=== PATIENT | male | born 1965 | race Caucasian/White ===

== ENCOUNTER 2023-08-07 21:42 | Inpatient (IN) | payer MEDICAID, MEDICARE ==
[~2023-08-07] VITALS: Ht 172.7 cm; Wt 63.3 kg
[2023-08-07] MEDS: BUPRENORPHINE/NALOXONE 8-2MG SUBLINGUAL TABLET(SUBOXONE) SL STA (22:10)
[2023-08-07 22:38] LABS: VENOUS BASE EXCESS 2.7 (-2.0-2.0); VENOUS HCO3 25.6 MMOL/L (23.0-27.0); VENOUS PARTIAL PRESSURE CO2 34.3 mmHg (38.0-50.0); VENOUS PARTIAL PRESSURE O2 51.8 mmHg (30.0-50.0); VENOUS STANDARD HCO3 26.6 MMOL/L; VENOUS TOTAL CO2 26.6 MMOL/L (24.0-28.0)
[2023-08-07 22:46] LABS: BASO % 0.4 % (0.0-1.0); EOS % 0.1 % (0.0-3.0); HEMATOCRIT 42.5 % (42.0-52.0); HEMOGLOBIN 15.1 g/dl (13.5-17.5); LYMPH # 1.8 10^3/uL (1.5-5.0); LYMPH % 23.4 % (24.0-44.0); MEAN CORPUSCULAR HEMOGLOBIN 31.7 pg (27.0-33.0); MEAN CORPUSCULAR HGB CONC 35.5 g/dl (32.0-36.5); MEAN CORPUSCULAR VOLUME 89.1 fl (80.0-96.0); MONO # 0.5 10^3/uL (0.0-0.8); MONO % 6.7 % (2.0-8.0); NEUTROPHILS # 5.2 10^3/uL (1.5-8.5); PLATELET COUNT, AUTOMATED 172 10^3/uL (150-450); RED BLOOD COUNT 4.77 10^6/uL (4.30-6.10); WHITE BLOOD COUNT 7.6 10^3/uL (4.0-10.0)
[2023-08-07 23:13] LABS: CK-MB VALUE MASS < 1.0 NG/ML (<3.6)
[2023-08-07 23:14] LABS: LIPASE 236 U/L (12-53)
[2023-08-07 23:15] LABS: ETHYL ALCOHOL (ETHANOL) 0.006 % (0.000-0.010)
[2023-08-07 23:16] LABS: CPK CREATINE PHOSPHOKINASE 27 U/L (46-171)
[2023-08-07 23:22] LABS: HEMOGLOBIN A1c 11.8 % (4.0-6.0)
[2023-08-07 23:45] LABS: ACETONE/KETONE 1.23 MMOL/L (0.02-0.27)
[2023-08-07 23:54] LABS: ALBUMIN 3.1 G/DL (3.2-5.2); ALKALINE PHOSPHATASE 172 U/L (46-116); ALT/SGPT 109 U/L (7.0-40); AST/SGOT 177 U/L (<34); BILIRUBIN,TOTAL 3.5 MG/DL (0.3-1.2); BLOOD UREA NITROGEN 6 MG/DL (9-23); CALCIUM LEVEL 8.6 MG/DL (8.5-10.1); CARBON DIOXIDE LEVEL 24 MMOL/L (20-31); CHLORIDE LEVEL 94 MMOL/L (98-107); CREATININE FOR GFR 0.39 MG/DL (0.70-1.30); GLOMERULAR FILTRATION RATE > 60.0 (>56); GLUCOSE, FASTING 438 MG/DL (60-100); MAGNESIUM LEVEL 1.2 MG/DL (1.8-2.4); POTASSIUM SERUM 4.1 MMOL/L (3.5-5.1); SODIUM LEVEL 132 MMOL/L (136-145); TOTAL PROTEIN 6.9 G/DL (5.7-8.2)
[2023-08-08] VITALS (7 sets, daily range): BP systolic 140–172; BP diastolic 85–106; TEMP 97–97.7; O2SAT 94–97
[2023-08-08] MEDS: MAG SULF 1GM/100ML (MAG RUN) 1 GM in IV 1 EA IV ONE (00:43)
[2023-08-08] MEDS: PIPERACILLIN/TAZOBACTAM SOD 3.375 GM in D5W MINI-BAG PLUS 50 ML IV ONE (00:52)
[2023-08-08] MEDS: NS 1,000 ML IV ONE (00:52)
[2023-08-08 01:25] LABS: AMPHETAMINES LEVEL URINE NEGATIVE (NEGATIVE); BARBITURATES URINE NEGATIVE (NEGATIVE); BENZODIAZEPINES URINE NEGATIVE (NEGATIVE); COCAINE METABOLITE URINE NEGATIVE (NEGATIVE); METHADONE URINE NEGATIVE (NEGATIVE); OPIATES URINE NEGATIVE (NEGATIVE); PHENCYCLIDINE URINE NEGATIVE (NEGATIVE)
[2023-08-08 01:26] LABS: CANNABINOIDS URINE NEGATIVE (NEGATIVE)
[2023-08-08 01:29] LABS: CK-MB VALUE MASS < 1.0 NG/ML (<3.6)
[2023-08-08 01:34] LABS: CPK CREATINE PHOSPHOKINASE 29 U/L (46-171); MB/CK RELATIVE INDEX 3.44 (< OR =4)
[2023-08-08 02:35] LABS: RSV AMPLIFICATION NEGATIVE (NEGATIVE)
[2023-08-08] MEDS: MAG SULF 1GM/100ML (MAG RUN) 1 GM in IV 1 EA IV SCH (02:55)
[2023-08-08] MEDS ORDERED: LORazepam 2 MG TAB PO PRN (03:00)
[2023-08-08] MEDS: LR 1,000 ML IV ONE (03:00)
[2023-08-08] MEDS ORDERED: METOCLOPRAMIDE INJ 10MG/2ML VIAL IV PRN (03:00)
[2023-08-08] MEDS ORDERED: DEXTROSE 50% 50ML SYRINGE IV PRN (03:20)
[2023-08-08] MEDS ORDERED: GLUCAGON INJ 1MG VIAL SC PRN (03:20)
[2023-08-08] MEDS ORDERED: GLUCOSE 4GM CHEW TABLET PO PRN (03:20)
[2023-08-08] MEDS ORDERED: KETOROLAC 30 MG/ML 1ML VIAL IV PRN ×2 (03:40)
[2023-08-08] MEDS ORDERED: MORPHINE 2 MG/ML 1ML VIAL IV PRN (03:40)
[2023-08-08] MEDS: LR 1,000 ML IV SCH (04:00)
[2023-08-08] MEDS: INSULIN LISPRO (NovoLOG) PER UNIT SC ONE (04:36)
[2023-08-08 04:46] LABS: BASO % 0.3 % (0.0-1.0); HEMATOCRIT 38.9 % (42.0-52.0); HEMOGLOBIN 13.5 g/dl (13.5-17.5); LYMPH # 1.4 10^3/uL (1.5-5.0); MEAN CORPUSCULAR HGB CONC 34.7 g/dl (32.0-36.5); MEAN CORPUSCULAR VOLUME 89.2 fl (80.0-96.0); MONO # 0.7 10^3/uL (0.0-0.8); MONO % 7.4 % (2.0-8.0); NEUTROPHILS # 6.8 10^3/uL (1.5-8.5); NEUTROPHILS % 75.6 % (36.0-66.0); PLATELET COUNT, AUTOMATED 126 10^3/uL (150-450); RED BLOOD COUNT 4.36 10^6/uL (4.30-6.10); WHITE BLOOD COUNT 8.9 10^3/uL (4.0-10.0)
[2023-08-08 04:57] LABS: INR 1.16; PROTHROMBIN TIME 14.4 SECONDS (12.5-14.5)
[2023-08-08 05:02] LABS: C REACTIVE PROTEIN QUANTITATIV < 0.40 MG/DL (<1.0)
[2023-08-08 05:03] LABS: AMYLASE 80 U/L (30-118)
[2023-08-08] MEDS: INSULIN LISPRO (NovoLOG) PER UNIT SC SCH (06:07)
[2023-08-08 08:32] LABS: BLOOD UREA NITROGEN 7 MG/DL (9-23); CALCIUM LEVEL 7.2 MG/DL (8.5-10.1); CARBON DIOXIDE LEVEL 26 MMOL/L (20-31); CHLORIDE LEVEL 97 MMOL/L (98-107); GLOMERULAR FILTRATION RATE > 60.0 (>56); GLUCOSE, FASTING 432 MG/DL (60-100); MAGNESIUM LEVEL 1.9 MG/DL (1.8-2.4); POTASSIUM SERUM 3.6 MMOL/L (3.5-5.1); SODIUM LEVEL 132 MMOL/L (136-145)
[2023-08-08 11:32] LABS: TRIGLYCERIDES LEVEL 104 MG/DL (<150)
[2023-08-08] MEDS: LORazepam 2 MG/ML 1ML VIAL IV PRN (11:42)
[2023-08-08] MEDS ORDERED: GABA-282 PO (11:50)
[2023-08-08] MEDS ORDERED: VENTAER INH (11:50)
[2023-08-08] MEDS ORDERED: AMLO1TAB24 PO (11:50)
[2023-08-08] MEDS ORDERED: CLON0.3T PO (11:50)
[2023-08-08] MEDS ORDERED: SUBO4MIS SL (11:50)
[2023-08-08] MEDS ORDERED: DIVA500T9 PO (11:50)
[2023-08-08] MEDS ORDERED: MIRT1TAB15 PO (11:50)
[2023-08-08] MEDS ORDERED: BUPR1FIL SL (11:50)
[2023-08-08] MEDS ORDERED: OMEP40CA4 PO (11:50)
[2023-08-08] MEDS ORDERED: ZOLO100T PO (11:50)
[2023-08-08] MEDS ORDERED: METF500T13 PO (11:50)
[2023-08-08] MEDS ORDERED: MIRT-10 PO (12:03)
[2023-08-08] MEDS ORDERED: HOME MED LIST COMPLETE! XX SCH (12:05)
[2023-08-08] MEDS: HumuLIN R (REGULAR) INSULIN (NovoLIN R) **100U/ML** PER UNIT IV STA (12:25)
[2023-08-08] MEDS: THIAMINE 200MG 2ML VIAL IV SCH (12:32)
[2023-08-08] MEDS: BUPRENORPHINE/NALOXONE 8-2MG SUBLINGUAL TABLET(SUBOXONE) SL STA (15:27)
[2023-08-08] MEDS: GABAPENTIN 300 MG CAP PO SCH (16:04)
[2023-08-08 18:45] LABS: HEMOGLOBIN A1c 11.4 % (4.0-6.0)
[2023-08-08 19:19] LABS: HEPATITIS B CORE ANTIBODY IGM NEGATIVE (NEGATIVE)
[2023-08-08 19:23] LABS: HEPATITIS C VIRUS ABY INDEX > 11.00 INDEX (<0.8)
[2023-08-08] MEDS: HEPARIN SOD (PORCINE) 5000UNITS/ML 1ML VIAL/SYRINGE SC SCH (22:11)
[2023-08-08] MEDS: SERTRALINE 100 MG TAB PO SCH (22:12)
[2023-08-08] MEDS: OXAZEPAM 15MG CAP PO SCH (22:12)
[2023-08-08] MEDS: MIRTAZAPINE 15 MG TAB PO SCH (22:12)
[2023-08-09 00:13] VITALS: BP 148/89; O2SAT 93
[2023-08-09 04:50] VITALS: BP 150/94; TEMP 97.2; O2SAT 91
[2023-08-09 06:12] LABS: HEMATOCRIT 38.5 % (42.0-52.0); HEMOGLOBIN 12.9 g/dl (13.5-17.5); MEAN CORPUSCULAR HEMOGLOBIN 31.5 pg (27.0-33.0); MEAN CORPUSCULAR HGB CONC 33.5 g/dl (32.0-36.5); MEAN CORPUSCULAR VOLUME 93.9 fl (80.0-96.0); PLATELET COUNT, AUTOMATED 109 10^3/uL (150-450); WHITE BLOOD COUNT 5.3 10^3/uL (4.0-10.0)
[2023-08-09 06:47] LABS: ALBUMIN 2.6 G/DL (3.2-5.2); ALKALINE PHOSPHATASE 132 U/L (46-116); ALT/SGPT 86 U/L (7.0-40); AST/SGOT 150 U/L (<34); BILIRUBIN,TOTAL 2.5 MG/DL (0.3-1.2); BLOOD UREA NITROGEN 7 MG/DL (9-23); CALCIUM LEVEL 8.3 MG/DL (8.5-10.1); CARBON DIOXIDE LEVEL 34 MMOL/L (20-31); CHLORIDE LEVEL 103 MMOL/L (98-107); CREATININE FOR GFR 0.46 MG/DL (0.70-1.30); GLOMERULAR FILTRATION RATE > 60.0 (>56); GLUCOSE, FASTING 93 MG/DL (60-100); MAGNESIUM LEVEL 1.6 MG/DL (1.8-2.4); POTASSIUM SERUM 3.9 MMOL/L (3.5-5.1); SODIUM LEVEL 143 MMOL/L (136-145); TOTAL PROTEIN 5.6 G/DL (5.7-8.2); TRIGLYCERIDES LEVEL 92 MG/DL (<150)
[2023-08-09] MEDS: OMEPRAZOLE 20MG CAP PO SCH (09:47)
[2023-08-09] MEDS: cloNIDine 0.1MG TABLET PO SCH (09:49)
[2023-08-09] MEDS: amLODIPine 5 MG TAB PO SCH (09:50)
[2023-08-09] MEDS: MAGNESIUM OXIDE 400MG TAB (MAG-OX) PO ONE (09:51)
[2023-08-09] MEDS: BUPRENORPHINE/NALOXONE 8-2MG SUBLINGUAL TABLET(SUBOXONE) SL SCH (09:51)
[2023-08-09] MEDS: DIVALPROEX 500MG *ER* TAB PO SCH (09:51)
[2023-08-09] MEDS: MAG SULF 1GM/100ML (MAG RUN) 1 GM in IV 1 EA IV SCH (09:52)
[2023-08-09 10:34] VITALS: O2SAT 96
[2023-08-09 14:00] VITALS: BP 98/68; TEMP 97.9; O2SAT 94
[2023-08-09 14:34] VITALS: BP 118/72
[2023-08-09] MEDS: NICOTINE 14 MG/24 HR TRANSDERMAL TD PRN (14:40)
[2023-08-09 19:40] VITALS: BP 118/72; TEMP 98.1; O2SAT 90
[2023-08-10] MEDS ORDERED: RAMELTEON 8 MG TAB (ROZEREM) PO PRN (00:20)
[2023-08-10] MEDS: MAGNESIUM OXIDE 400MG TAB (MAG-OX) PO ONE (02:55)
[2023-08-10 06:42] VITALS: BP 119/76; TEMP 97.7; O2SAT 92
[2023-08-10] MEDS: INSULIN LISPRO (NovoLOG) PER UNIT SC SCH ×2 (07:30→21:00)
[2023-08-10 08:00] VITALS: BP 114/73
[2023-08-10 09:17] LABS: BLOOD UREA NITROGEN 8 MG/DL (9-23); CALCIUM LEVEL 7.5 MG/DL (8.5-10.1); CARBON DIOXIDE LEVEL 29 MMOL/L (20-31); CHLORIDE LEVEL 99 MMOL/L (98-107); CREATININE FOR GFR 0.42 MG/DL (0.70-1.30); GLOMERULAR FILTRATION RATE > 60.0 (>56); GLUCOSE, FASTING 248 MG/DL (60-100); MAGNESIUM LEVEL 1.6 MG/DL (1.8-2.4); POTASSIUM SERUM 3.3 MMOL/L (3.5-5.1); SODIUM LEVEL 132 MMOL/L (136-145)
[2023-08-10] MEDS: MAGNESIUM OXIDE 400MG TAB (MAG-OX) PO SCH (09:57)
[2023-08-10] MEDS: MAG SULF 1GM/100ML (MAG RUN) 1 GM in IV 1 EA IV SCH (10:02)
[2023-08-10] MEDS: NYSTATIN OINTMENT 15 GM TOP SCH (13:14)
[2023-08-10 14:00] VITALS: BP 112/72; TEMP 97.3; O2SAT 91
[2023-08-10] MEDS: KCL 10MEQ/100ML SWI (KRUN) 10 MEQ in IV 1 EA IV SCH (14:10)
[2023-08-10 17:46] LABS: BLOOD UREA NITROGEN 7 MG/DL (9-23); CALCIUM LEVEL 8.1 MG/DL (8.5-10.1); CARBON DIOXIDE LEVEL 28 MMOL/L (20-31); CHLORIDE LEVEL 101 MMOL/L (98-107); CREATININE FOR GFR 0.47 MG/DL (0.70-1.30); GLOMERULAR FILTRATION RATE > 60.0 (>56); GLUCOSE, FASTING 248 MG/DL (60-100); MAGNESIUM LEVEL 1.9 MG/DL (1.8-2.4); POTASSIUM SERUM 3.8 MMOL/L (3.5-5.1); SODIUM LEVEL 136 MMOL/L (136-145)
[2023-08-10] MEDS: KCL 10MEQ/100ML SWI (KRUN) 10 MEQ in IV 1 EA IV ONE (18:06)
[2023-08-10 21:15] VITALS: BP 122/65; TEMP 97.7; O2SAT 92
[2023-08-11 05:43] VITALS: BP 110/59; TEMP 97.5; O2SAT 92
[2023-08-11 07:21] LABS: BLOOD UREA NITROGEN 9 MG/DL (9-23); CALCIUM LEVEL 7.4 MG/DL (8.5-10.1); CARBON DIOXIDE LEVEL 30 MMOL/L (20-31); CHLORIDE LEVEL 104 MMOL/L (98-107); CREATININE FOR GFR 0.41 MG/DL (0.70-1.30); GLOMERULAR FILTRATION RATE > 60.0 (>56); GLUCOSE, FASTING 229 MG/DL (60-100); MAGNESIUM LEVEL 1.6 MG/DL (1.8-2.4); POTASSIUM SERUM 3.4 MMOL/L (3.5-5.1); SODIUM LEVEL 139 MMOL/L (136-145)
[2023-08-11] MEDS: MAG SULF 1GM/100ML (MAG RUN) 1 GM in IV 1 EA IV ONE (09:57)
[2023-08-11] MEDS: MAGNESIUM OXIDE 400MG TAB (MAG-OX) PO SCH (09:58)
[2023-08-11] MEDS: POTASSIUM CHLORIDE 10MEQ SR TABLET PO SCH (09:58)
[2023-08-11 14:00] VITALS: BP 105/72; TEMP 97.5; O2SAT 91
[2023-08-11 20:57] VITALS: BP 111/74; TEMP 97.7; O2SAT 90
[2023-08-12] VITALS (8 sets, daily range): BP systolic 111–135; BP diastolic 72–85; TEMP 97.7–98.1; O2SAT 83–98
[2023-08-12 06:56] LABS: BLOOD UREA NITROGEN 8 MG/DL (9-23); CALCIUM LEVEL 7.5 MG/DL (8.5-10.1); CARBON DIOXIDE LEVEL 30 MMOL/L (20-31); CHLORIDE LEVEL 105 MMOL/L (98-107); CREATININE FOR GFR 0.35 MG/DL (0.70-1.30); GLOMERULAR FILTRATION RATE > 60.0 (>56); GLUCOSE, FASTING 225 MG/DL (60-100); MAGNESIUM LEVEL 1.5 MG/DL (1.8-2.4); POTASSIUM SERUM 4.9 MMOL/L (3.5-5.1); SODIUM LEVEL 141 MMOL/L (136-145)
[2023-08-12] MEDS: MAG SULF 1GM/100ML (MAG RUN) 1 GM in IV 1 EA IV SCH (08:33)
[2023-08-13] VITALS (8 sets, daily range): BP systolic 118–155; BP diastolic 78–92; TEMP 97.3–98.8; O2SAT 87–94
[2023-08-13 07:16] LABS: BLOOD UREA NITROGEN 8 MG/DL (9-23); CALCIUM LEVEL 8.2 MG/DL (8.5-10.1); CARBON DIOXIDE LEVEL 29 MMOL/L (20-31); CHLORIDE LEVEL 99 MMOL/L (98-107); CREATININE FOR GFR 0.38 MG/DL (0.70-1.30); GLOMERULAR FILTRATION RATE > 60.0 (>56); GLUCOSE, FASTING 169 MG/DL (60-100); MAGNESIUM LEVEL 1.7 MG/DL (1.8-2.4); POTASSIUM SERUM 5.7 MMOL/L (3.5-5.1); SODIUM LEVEL 132 MMOL/L (136-145)
[2023-08-13] MEDS: FUROSEMIDE 40MG/4ML VIAL IV ONE ×2 (14:24→18:39)
[2023-08-13 15:50] LABS: APPEARANCE, URINE CLEAR (CLEAR); BACTERIA, URINE AUTO NEGATIVE (NEGATIVE); BILIRUBIN, URINE AUTO NEGATIVE (NEGATIVE); BLOOD, URINE BLOOD NEGATIVE (NEGATIVE); COLOR, URINE AMBER (YELLOW); GLUCOSE, URINE (UA) AUTO NEGATIVE (NEGATIVE); KETONE, URINE AUTO NEGATIVE (NEGATIVE); LEUKOCYTE ESTERASE, URINE AUTO NEGATIVE (NEGATIVE); NITRITE, URINE AUTO NEGATIVE (NEGATIVE); PROTEIN, URINE AUTO NEGATIVE (NEGATIVE); RBC, URINE AUTO 0 /HPF (0-3); SPECIFIC GRAVITY URINE AUTO 1.018 (1.002-1.035); SQUAMOUS EPITHELIAL CELL UR AU 0 /HPF (0-6); WBC, URINE AUTO 0 /HPF (0-3)
[2023-08-13] MEDS: CALCIUM GLUCONATE 1,000 MG in D5W MINI-BAG PLUS 100 ML IV ONE (18:40)
[2023-08-13 19:24] LABS: PROCALCITONIN 0.65 ng/ml
[2023-08-13] MEDS: ALBUTEROL 90 MCG/ACT 8GM HFA INHALER INH PRN (19:49)
[2023-08-13] MEDS: cefTRIAXone SOD 1 GM in D5W MINI-BAG PLUS 50 ML IV SCH (20:27)
[2023-08-14] VITALS (7 sets, daily range): BP systolic 101–147; BP diastolic 63–89; TEMP 97.5–98.1; O2SAT 83–95
[2023-08-14 06:58] LABS: ALBUMIN 2.3 G/DL (3.2-5.2); ALKALINE PHOSPHATASE 136 U/L (46-116); ALT/SGPT 47 U/L (7.0-40); AST/SGOT 66 U/L (<34); BILIRUBIN,DIRECT 0.8 MG/DL (<0.4); BLOOD UREA NITROGEN 15 MG/DL (9-23); CALCIUM LEVEL 7.8 MG/DL (8.5-10.1); CARBON DIOXIDE LEVEL 31 MMOL/L (20-31); CHLORIDE LEVEL 98 MMOL/L (98-107); CREATININE FOR GFR 0.49 MG/DL (0.70-1.30); GLOMERULAR FILTRATION RATE > 60.0 (>56); GLUCOSE, FASTING 262 MG/DL (60-100); MAGNESIUM LEVEL 1.7 MG/DL (1.8-2.4); PHOSPHORUS LEVEL 3.4 MG/DL (2.5-4.9); POTASSIUM SERUM 4.5 MMOL/L (3.5-5.1); SODIUM LEVEL 134 MMOL/L (136-145); THYROID STIMULATING HORMONE 2.484 uIU/ML (0.55-4.78); TOTAL PROTEIN 5.7 G/DL (5.7-8.2)
[2023-08-14] MEDS: MAG SULF 1GM/100ML (MAG RUN) 1 GM in IV 1 EA IV SCH (08:18)
[2023-08-14] MEDS: INSULIN LISPRO (NovoLOG) PER UNIT SC ONE (13:40)
[2023-08-14] MEDS: guaiFENesin ER TABLET 600 MG TAB PO SCH (13:43)
[2023-08-14] MEDS: IPRATROPIUM 0.5MG/ALBUTEROL 2.5MG INH SOL UD 3ML (DUONEB) NEB SCH (14:09)
[2023-08-14] MEDS: LEVEMIR (INSULIN DETEMIR) 1 UNITS/0.01ML SC SCH (20:30)
[2023-08-15 06:00] VITALS: BP 118/70; TEMP 97.2; O2SAT 93
[2023-08-15 07:06] LABS: BLOOD UREA NITROGEN 10 MG/DL (9-23); CALCIUM LEVEL 7.4 MG/DL (8.5-10.1); CARBON DIOXIDE LEVEL 34 MMOL/L (20-31); CHLORIDE LEVEL 96 MMOL/L (98-107); CREATININE FOR GFR 0.42 MG/DL (0.70-1.30); GLOMERULAR FILTRATION RATE > 60.0 (>56); GLUCOSE, FASTING 115 MG/DL (60-100); MAGNESIUM LEVEL 1.9 MG/DL (1.8-2.4); POTASSIUM SERUM 4.7 MMOL/L (3.5-5.1); SODIUM LEVEL 135 MMOL/L (136-145)
[2023-08-15 12:28] VITALS: O2SAT 91
[2023-08-15 14:00] VITALS: BP 109/68; TEMP 98.1; O2SAT 91
[2023-08-15] MEDS: BETAMETHASONE VAL 0.1% OINT 15 GM TOP SCH (14:44)
[2023-08-15] MEDS: MULTIVITAMINS/MINERALS THERAP 1 TAB PO SCH (14:44)
[2023-08-15] MEDS: CLOTRIMAZOLE 1% TOPICAL CREAM 30GM TOP SCH (17:12)
[2023-08-15 20:40] VITALS: BP 107/95; TEMP 97.5; O2SAT 89
[2023-08-16 07:21] LABS: BLOOD UREA NITROGEN 7 MG/DL (9-23); CALCIUM LEVEL 7.6 MG/DL (8.5-10.1); CARBON DIOXIDE LEVEL 33 MMOL/L (20-31); CHLORIDE LEVEL 100 MMOL/L (98-107); CREATININE FOR GFR 0.37 MG/DL (0.70-1.30); GLOMERULAR FILTRATION RATE > 60.0 (>56); GLUCOSE, FASTING 224 MG/DL (60-100); MAGNESIUM LEVEL 1.6 MG/DL (1.8-2.4); POTASSIUM SERUM 4.3 MMOL/L (3.5-5.1); SODIUM LEVEL 137 MMOL/L (136-145)
[2023-08-16 07:43] VITALS: O2SAT 95
[2023-08-16 08:14] VITALS: BP 113/74
[2023-08-16] MEDS: THIAMINE 100 MG TAB PO SCH (08:16)
[2023-08-16] MEDS ORDERED: METF10004 PO (10:34)
[2023-08-16] MEDS ORDERED: BETA1OI TOP (10:34)
[2023-08-16] MEDS ORDERED: FARX1TAB3 PO (10:34)
[2023-08-16] MEDS ORDERED: MAGN400T2 PO (10:34)
[2023-08-16] MEDS ORDERED: CLOTR1CR TOP (10:34)
[2023-08-16] MEDS ORDERED: THIA100TA PO (10:34)
[2023-08-16] MEDS ORDERED: CEFD1CAP9 PO (10:44)
[2023-08-16] MEDS ORDERED: CLON0.3T PO (13:09)
[2023-08-16] MEDS ORDERED: VENTAER INH (13:09)
[2023-08-16] MEDS: ACETAMINOPHEN TAB 650MG DOSE (2X325MG) PO ONE (13:40)
== END 2023-08-16 13:46 | disposition home health service (06) | DRG 773 ==
LOC: M ED 21:42 → M ED INP 08-08 02:58 → M MSPAV 08-08 14:16
PROVIDERS: ADMIT Internal Medicine; ATTEND Internal Medicine
DX: F11.23 Opioid dependence with withdrawal (principal); J96.01 Acute respiratory failure with hypoxia; J69.0 Pneumonitis due to inhalation of food and vomit; E11.65 Type 2 diabetes mellitus with hyperglycemia; F10.10 Alcohol abuse, uncomplicated; E83.42 Hypomagnesemia; I10 Essential (primary) hypertension; B35.9 Dermatophytosis, unspecified; R32 Unspecified urinary incontinence; K85.20 Alcohol induced acute pancreatitis without necrosis or infection; M51.26 Other intervertebral disc displacement, lumbar region; F17.200 Nicotine dependence, unspecified, uncomplicated; R26.89 Other abnormalities of gait and mobility; M48.061 Spinal stenosis, lumbar region without neurogenic claudication; R74.01 Elevation of levels of liver transaminase levels; Z74.1 Need for assistance with personal care; L30.9 Dermatitis, unspecified; Z11.52 Encounter for screening for COVID-19

== ENCOUNTER 2023-08-24 21:17 | Observation (INO) | payer MEDICARE, MEDICAID ==
[~2023-08-24] VITALS: Ht 172.7 cm; Wt 69.8 kg
[~2023-08-24 21:17] MED LIST: AMLO1TAB24 PO; BETA1OI TOP; BUPR1FIL SL; CEFD1CAP9 PO; CLON0.3T PO; CLOTR1CR TOP; DIVA500T9 PO; FARX1TAB3 PO; GABA-282 PO; MAGN400T2 PO; METF10004 PO; METF500T13 PO; MIRT-10 PO; MIRT1TAB15 PO; OMEP40CA4 PO; SUBO4MIS SL; THIA100TA PO; VENTAER INH; ZOLO100T PO
[2023-08-24] MEDS: ONDANSETRON 4MG 2ML VIAL IV ONE (21:47)
[2023-08-24] MEDS: KETOROLAC 30 MG/ML 1ML VIAL IV ONE (21:47)
[2023-08-24] MEDS: NS 1,000 ML IV ONE (21:47)
[2023-08-24 22:16] LABS: LIPASE 140 U/L (12-53)
[2023-08-24 22:22] LABS: ALBUMIN 2.5 G/DL (3.2-5.2); ALKALINE PHOSPHATASE 131 U/L (46-116); ALT/SGPT 77 U/L (7.0-40); AST/SGOT 123 U/L (<34); BASO # 0.1 10^3/uL (0.0-0.2); BASO % 1.4 % (0.0-1.0); BILIRUBIN,TOTAL 0.7 MG/DL (0.3-1.2); BLOOD UREA NITROGEN < 5 MG/DL (9-23); CALCIUM LEVEL 7.7 MG/DL (8.5-10.1); CARBON DIOXIDE LEVEL 24 MMOL/L (20-31); CHLORIDE LEVEL 107 MMOL/L (98-107); CREATININE FOR GFR 0.39 MG/DL (0.70-1.30); EOS % 0.2 % (0.0-3.0); GLOMERULAR FILTRATION RATE > 60.0 (>56); GLUCOSE, FASTING 226 MG/DL (60-100); HEMATOCRIT 35.1 % (42.0-52.0); LYMPH # 1.2 10^3/uL (1.5-5.0); LYMPH % 17.5 % (24.0-44.0); MEAN CORPUSCULAR HGB CONC 34.2 g/dl (32.0-36.5); MEAN CORPUSCULAR VOLUME 93.6 fl (80.0-96.0); MONO # 0.5 10^3/uL (0.0-0.8); MONO % 8.2 % (2.0-8.0); NEUTROPHILS # 4.8 10^3/uL (1.5-8.5); NEUTROPHILS % 72.1 % (36.0-66.0); PLATELET COUNT, AUTOMATED 217 10^3/uL (150-450); POTASSIUM SERUM 3.8 MMOL/L (3.5-5.1); RED BLOOD COUNT 3.75 10^6/uL (4.30-6.10); SODIUM LEVEL 141 MMOL/L (136-145); TOTAL PROTEIN 5.7 G/DL (5.7-8.2); WHITE BLOOD COUNT 6.6 10^3/uL (4.0-10.0)
[2023-08-24] MEDS: MORPHINE 4 MG/ML 1ML VIAL IV ONE (23:16)
[2023-08-24] MEDS ORDERED: ISOVUE-370 76% 100ML VIAL As Ordered ONE (23:16)
[2023-08-25] VITALS (7 sets, daily range): BP systolic 117–155; BP diastolic 56–86; TEMP 96.7–98.9; O2SAT 91–99
[2023-08-25] MEDS ORDERED: METOCLOPRAMIDE INJ 10MG/2ML VIAL IV PRN (00:40)
[2023-08-25] MEDS ORDERED: GLUCOSE 4GM CHEW TABLET PO PRN (00:40)
[2023-08-25] MEDS ORDERED: KETOROLAC 30 MG/ML 1ML VIAL IV PRN (00:40)
[2023-08-25] MEDS ORDERED: GLUCAGON INJ 1MG VIAL SC PRN (00:40)
[2023-08-25] MEDS ORDERED: DEXTROSE 50% 50ML SYRINGE IV PRN (00:40)
[2023-08-25] MEDS ORDERED: SUBO8MIS SL (01:05)
[2023-08-25] MEDS ORDERED: CLON0.3T PO ×2 (01:05→10:58)
[2023-08-25] MEDS ORDERED: HOME MED LIST COMPLETE! XX SCH (01:05)
[2023-08-25] MEDS ORDERED: FARX1TAB3 PO (01:05)
[2023-08-25] MEDS ORDERED: METF-877 PO (01:05)
[2023-08-25 01:33] LABS: C REACTIVE PROTEIN QUANTITATIV < 0.40 MG/DL (<1.0); MAGNESIUM LEVEL 1.2 MG/DL (1.8-2.4)
[2023-08-25 01:34] LABS: AMYLASE 175 U/L (30-118)
[2023-08-25] MEDS: LR 1,000 ML IV SCH (02:01)
[2023-08-25] MEDS: INSULIN LISPRO (NovoLOG) PER UNIT SC SCH ×3 (02:01→20:20)
[2023-08-25] MEDS: MAG SULF 1GM/100ML (MAG RUN) 1 GM in IV 1 EA IV SCH (02:02)
[2023-08-25 03:13] LABS: APPEARANCE, URINE CLEAR (CLEAR); BACTERIA, URINE AUTO NEGATIVE (NEGATIVE); BILIRUBIN, URINE AUTO NEGATIVE (NEGATIVE); BLOOD, URINE BLOOD NEGATIVE (NEGATIVE); COLOR, URINE YELLOW (YELLOW); GLUCOSE, URINE (UA) AUTO NEGATIVE (NEGATIVE); KETONE, URINE AUTO NEGATIVE (NEGATIVE); LEUKOCYTE ESTERASE, URINE AUTO NEGATIVE (NEGATIVE); NITRITE, URINE AUTO NEGATIVE (NEGATIVE); PROTEIN, URINE AUTO NEGATIVE (NEGATIVE); RBC, URINE AUTO 0 /HPF (0-3); SPECIFIC GRAVITY URINE AUTO 1.048 (1.002-1.035); SQUAMOUS EPITHELIAL CELL UR AU 0 /HPF (0-6); WBC, URINE AUTO 0 /HPF (0-3)
[2023-08-25 03:13] LABS: BASO # 0.1 10^3/uL (0.0-0.2); BASO % 1.3 % (0.0-1.0); EOS % 0.6 % (0.0-3.0); HEMATOCRIT 32.4 % (42.0-52.0); HEMOGLOBIN 11.2 g/dl (13.5-17.5); LYMPH # 1.7 10^3/uL (1.5-5.0); LYMPH % 27.3 % (24.0-44.0); MEAN CORPUSCULAR HEMOGLOBIN 32.1 pg (27.0-33.0); MEAN CORPUSCULAR HGB CONC 34.6 g/dl (32.0-36.5); MEAN CORPUSCULAR VOLUME 92.8 fl (80.0-96.0); MONO # 0.4 10^3/uL (0.0-0.8); MONO % 6.3 % (2.0-8.0); NEUTROPHILS % 63.9 % (36.0-66.0); PLATELET COUNT, AUTOMATED 197 10^3/uL (150-450); RED BLOOD COUNT 3.49 10^6/uL (4.30-6.10); WHITE BLOOD COUNT 6.3 10^3/uL (4.0-10.0)
[2023-08-25 03:25] LABS: INR 1.25; PARTIAL THROMBOPLASTIN TIME 28.5 SECONDS (24.8-34.2); PROTHROMBIN TIME 15.4 SECONDS (12.5-14.5)
[2023-08-25 03:37] LABS: LIPASE 108 U/L (12-53)
[2023-08-25 03:39] LABS: AMYLASE 127 U/L (30-118)
[2023-08-25] MEDS: AZITHROMYCIN INJ 500 MG, VIAL MATE ADAPTER 1 EACH in NS 250 ML IV SCH (05:27)
[2023-08-25 06:16] LABS: ALBUMIN 2.3 G/DL (3.2-5.2); ALKALINE PHOSPHATASE 121 U/L (46-116); ALT/SGPT 71 U/L (7.0-40); AST/SGOT 110 U/L (<34); BILIRUBIN,TOTAL 0.8 MG/DL (0.3-1.2); BLOOD UREA NITROGEN < 5 MG/DL (9-23); CALCIUM LEVEL 7.1 MG/DL (8.5-10.1); CARBON DIOXIDE LEVEL 25 MMOL/L (20-31); CHLORIDE LEVEL 111 MMOL/L (98-107); GLOMERULAR FILTRATION RATE > 60.0 (>56); GLUCOSE, FASTING 87 MG/DL (60-100); MAGNESIUM LEVEL 1.4 MG/DL (1.8-2.4); SODIUM LEVEL 144 MMOL/L (136-145); TOTAL PROTEIN 5.2 G/DL (5.7-8.2); TRIGLYCERIDES LEVEL 162 MG/DL (<150)
[2023-08-25 07:15] LABS: HIV SCREEN CENTAUR SOURCE NEGATIVE (NEGATIVE)
[2023-08-25] MEDS: NICOTINE 21MG/24HR 1 EA TRANSDERMAL TD SCH (09:00)
[2023-08-25] MEDS: POTASSIUM CHLORIDE 10MEQ SR TABLET PO ONE ×2 (09:36→12:35)
[2023-08-25] MEDS: LACTOBACILLUS ACIDOPHILUS CAP (BACID) PO SCH (09:36)
[2023-08-25] MEDS: MAGNESIUM OXIDE 400MG TAB (MAG-OX) PO SCH (09:36)
[2023-08-25] MEDS: ENOXAPARIN 40MG/0.4ML SYRINGE (J1650 PER 10MG) SC SCH (09:37)
[2023-08-25] MEDS ORDERED: NICO21PAT TD (10:57)
[2023-08-25] MEDS ORDERED: AZIT-12 PO (10:57)
[2023-08-25] MEDS: BUPRENORPHINE/NALOXONE 8-2MG SUBLINGUAL TABLET(SUBOXONE) SL SCH ×2 (11:19→20:19)
[2023-08-25] MEDS ORDERED: POTA10808 PO (13:10)
[2023-08-25] MEDS ORDERED: MAGN500T2 PO (13:10)
[2023-08-25] MEDS: KETOROLAC 30 MG/ML 1ML VIAL IV PRN (13:11)
[2023-08-25 14:16] LABS: BLOOD UREA NITROGEN < 5 MG/DL (9-23); CALCIUM LEVEL 7.5 MG/DL (8.5-10.1); CARBON DIOXIDE LEVEL 26 MMOL/L (20-31); CHLORIDE LEVEL 105 MMOL/L (98-107); CREATININE FOR GFR 0.33 MG/DL (0.70-1.30); GLOMERULAR FILTRATION RATE > 60.0 (>56); GLUCOSE, FASTING 311 MG/DL (60-100); MAGNESIUM LEVEL 1.9 MG/DL (1.8-2.4); POTASSIUM SERUM 4.1 MMOL/L (3.5-5.1); SODIUM LEVEL 136 MMOL/L (136-145)
[2023-08-25] MEDS: MORPHINE 2 MG/ML 1ML VIAL IV PRN (15:59)
[2023-08-25] MEDS ORDERED: MORPHINE 2 MG/ML 1ML VIAL IV ONE (16:00)
[2023-08-25] MEDS: cloNIDine 0.1MG TABLET PO PRN (16:08)
[2023-08-25 18:30] LABS: HEMOGLOBIN A1c 8.5 % (4.0-6.0)
[2023-08-25] MEDS ORDERED: PILL CUTTER 1 EACH XX ONE (20:12)
[2023-08-25] MEDS: LEVEMIR (INSULIN DETEMIR) 1 UNITS/0.01ML SC SCH (20:18)
[2023-08-25] MEDS: SERTRALINE 100 MG TAB PO SCH (20:18)
[2023-08-25] MEDS ORDERED: PERCOCET 5MG/325MG TAB PO PRN (21:55)
[2023-08-25] MEDS: RAMELTEON 8 MG TAB (ROZEREM) PO PRN (21:58)
[2023-08-25] MEDS: KETOROLAC TROMETHAMINE 10 MG TAB PO PRN (22:14)
[2023-08-26 06:00] VITALS: BP 112/77; TEMP 97.7; O2SAT 97
[2023-08-26 06:25] LABS: BASO # 0.1 10^3/uL (0.0-0.2); BASO % 1.5 % (0.0-1.0); EOS # 0.1 10^3/uL (0.0-0.5); EOS % 2.5 % (0.0-3.0); HEMATOCRIT 33.6 % (42.0-52.0); HEMOGLOBIN 10.9 g/dl (13.5-17.5); LYMPH # 1.4 10^3/uL (1.5-5.0); LYMPH % 29.6 % (24.0-44.0); MEAN CORPUSCULAR HEMOGLOBIN 31.5 pg (27.0-33.0); MEAN CORPUSCULAR HGB CONC 32.4 g/dl (32.0-36.5); MEAN CORPUSCULAR VOLUME 97.1 fl (80.0-96.0); MONO # 0.3 10^3/uL (0.0-0.8); MONO % 6.9 % (2.0-8.0); NEUTROPHILS # 2.8 10^3/uL (1.5-8.5); NEUTROPHILS % 58.9 % (36.0-66.0); PLATELET COUNT, AUTOMATED 138 10^3/uL (150-450); RED BLOOD COUNT 3.46 10^6/uL (4.30-6.10); WHITE BLOOD COUNT 4.8 10^3/uL (4.0-10.0)
[2023-08-26 07:07] LABS: BLOOD UREA NITROGEN 8 MG/DL (9-23); CALCIUM LEVEL 7.4 MG/DL (8.5-10.1); CARBON DIOXIDE LEVEL 25 MMOL/L (20-31); CHLORIDE LEVEL 105 MMOL/L (98-107); CREATININE FOR GFR 0.33 MG/DL (0.70-1.30); GLOMERULAR FILTRATION RATE > 60.0 (>56); GLUCOSE, FASTING 290 MG/DL (60-100); POTASSIUM SERUM 4.3 MMOL/L (3.5-5.1); SODIUM LEVEL 135 MMOL/L (136-145)
[2023-08-26] MEDS: AZITHROMYCIN 250MG TABLET PO SCH (09:09)
[2023-08-26 09:12] VITALS: BP 122/76
[2023-08-26 10:00] VITALS: BP 123/76; TEMP 97.9; O2SAT 96
[2023-08-26] MEDS ORDERED: ZOLO100T PO (11:06)
[2023-08-26] MEDS ORDERED: METF-877 PO (11:06)
== END 2023-08-26 13:51 | disposition home or self-care (01) ==
LOC: M ED 21:17 → EDBD 21:17 → INTOOBSV 08-25 00:39 → M ED INP 08-25 00:39 → M PCU 08-25 02:10 → M MSPAV 08-25 20:30
PROVIDERS: ADMIT Family Medicine; ATTEND Internal Medicine
DX: A04.5 Campylobacter enteritis (principal); E87.6 Hypokalemia; E83.42 Hypomagnesemia; R74.8 Abnormal levels of other serum enzymes; R74.01 Elevation of levels of liver transaminase levels; E11.9 Type 2 diabetes mellitus without complications; F39 Unspecified mood [affective] disorder; F11.20 Opioid dependence, uncomplicated; R10.30 Lower abdominal pain, unspecified; K57.90 Diverticulosis of intestine, part unspecified, without perforation or abscess without bleeding; K76.0 Fatty (change of) liver, not elsewhere classified; R16.0 Hepatomegaly, not elsewhere classified; R05.9 Cough, unspecified; R06.02 Shortness of breath; R50.9 Fever, unspecified; I10 Essential (primary) hypertension; F41.9 Anxiety disorder, unspecified; Z87.19 Personal history of other diseases of the digestive system; B19.20 Unspecified viral hepatitis C without hepatic coma; F10.10 Alcohol abuse, uncomplicated; Z91.148 Patient's other noncompliance with medication regimen for other reason; F17.210 Nicotine dependence, cigarettes, uncomplicated; Z79.899 Other long term (current) drug therapy; Z79.84 Long term (current) use of oral hypoglycemic drugs; Z80.1 Family history of malignant neoplasm of trachea, bronchus and lung; Z81.1 Family history of alcohol abuse and dependence; Z83.79 Family history of other diseases of the digestive system
CPT/HCPCS: 36415; 71045; 74177; 80048; 80053; 81001; 82150; 83036; 83690; 83735; 84145; 84478; 85025; 85610; 85730; 86140; 86803; 87340; 87389; 87507; 87522; 87635; 96365; 96366; 96372; 96375; 96376; 99285; G0378; J0456; J1650; J1815; J1885; J2405; J3475; Q9967

== ENCOUNTER 2023-08-30 00:54 | Inpatient (IN) | payer MEDICARE, MEDICAID ==
[~2023-08-30] VITALS: Ht 175.3 cm; Wt 81.8 kg
[~2023-08-30 00:54] MED LIST changes: +AZIT-12 PO; +MAGN500T2 PO; +METF-877 PO; +NICO21PAT TD; +POTA10808 PO; +SUBO8MIS SL
[2023-08-30 03:12] LABS: BASO # 0.2 10^3/uL (0.0-0.2); BASO % 2.1 % (0.0-1.0); EOS % 0.2 % (0.0-3.0); HEMATOCRIT 48.3 % (42.0-52.0); HEMOGLOBIN 16.3 g/dl (13.5-17.5); LYMPH # 2.4 10^3/uL (1.5-5.0); LYMPH % 30.3 % (24.0-44.0); MEAN CORPUSCULAR HEMOGLOBIN 31.8 pg (27.0-33.0); MEAN CORPUSCULAR HGB CONC 33.7 g/dl (32.0-36.5); MEAN CORPUSCULAR VOLUME 94.3 fl (80.0-96.0); MONO # 0.5 10^3/uL (0.0-0.8); MONO % 6.5 % (2.0-8.0); NEUTROPHILS # 4.8 10^3/uL (1.5-8.5); PLATELET COUNT, AUTOMATED 191 10^3/uL (150-450); RED BLOOD COUNT 5.12 10^6/uL (4.30-6.10); WHITE BLOOD COUNT 8.1 10^3/uL (4.0-10.0)
[2023-08-30 03:24] LABS: INR 1.15; PROTHROMBIN TIME 14.3 SECONDS (12.5-14.5)
[2023-08-30 03:34] LABS: CK-MB VALUE MASS < 1.0 NG/ML (<3.6); LIPASE 113 U/L (12-53)
[2023-08-30 03:37] LABS: ALBUMIN 3.1 G/DL (3.2-5.2); ALKALINE PHOSPHATASE 187 U/L (46-116); ALT/SGPT 120 U/L (7.0-40); AST/SGOT 232 U/L (<34); BILIRUBIN,DIRECT 0.8 MG/DL (<0.4); BILIRUBIN,TOTAL 1.3 MG/DL (0.3-1.2); BLOOD UREA NITROGEN < 5 MG/DL (9-23); CALCIUM LEVEL 8.2 MG/DL (8.5-10.1); CARBON DIOXIDE LEVEL 27 MMOL/L (20-31); CHLORIDE LEVEL 108 MMOL/L (98-107); CPK CREATINE PHOSPHOKINASE 37 U/L (46-171); CREATININE FOR GFR 0.45 MG/DL (0.70-1.30); GLOMERULAR FILTRATION RATE > 60.0 (>56); GLUCOSE, FASTING 167 MG/DL (60-100); POTASSIUM SERUM 3.6 MMOL/L (3.5-5.1); SODIUM LEVEL 144 MMOL/L (136-145)
[2023-08-30 03:48] LABS: RSV AMPLIFICATION NEGATIVE (NEGATIVE)
[2023-08-30 04:34] LABS: CK-MB VALUE MASS < 1.0 NG/ML (<3.6)
[2023-08-30 04:36] LABS: CPK CREATINE PHOSPHOKINASE 46 U/L (46-171); MB/CK RELATIVE INDEX 2.17 (< OR =4)
[2023-08-30] MEDS ORDERED: ISOVUE-370 76% 100ML VIAL As Ordered ONE (08:44)
[2023-08-30] MEDS: NS 1,000 ML IV SCH (10:05)
[2023-08-30] MEDS ORDERED: ALBU8.5H INH (10:08)
[2023-08-30] MEDS ORDERED: BUPR1SUB5 SL (10:08)
[2023-08-30] MEDS ORDERED: METF10004 PO (10:08)
[2023-08-30] MEDS ORDERED: HOME MED LIST COMPLETE! XX SCH (10:10)
[2023-08-30] MEDS ORDERED: ALBUTEROL 90 MCG/ACT 8GM HFA INHALER INH PRN (12:00)
[2023-08-30 12:04] LABS: RSV AMPLIFICATION NEGATIVE (NEGATIVE)
[2023-08-30] MEDS: BUPRENORPHINE/NALOXONE 8-2MG SUBLINGUAL TABLET(SUBOXONE) SL SCH (12:21)
[2023-08-30] MEDS ORDERED: GLUCOSE 4GM CHEW TABLET PO PRN (12:25)
[2023-08-30] MEDS ORDERED: GLUCAGON INJ 1MG VIAL SC PRN (12:25)
[2023-08-30] MEDS ORDERED: DEXTROSE 50% 50ML SYRINGE IV PRN (12:25)
[2023-08-30 13:16] VITALS: BP 139/54; TEMP 97.7; O2SAT 99
[2023-08-30 13:16] LABS: INR 1.22; PARTIAL THROMBOPLASTIN TIME 28.6 SECONDS (24.8-34.2)
[2023-08-30] MEDS: ONDANSETRON 4MG ORAL DISINTEGRATING TAB SL PRN (13:42)
[2023-08-30] MEDS: NICOTINE 21MG/24HR 1 EA TRANSDERMAL TD SCH (13:42)
[2023-08-30] MEDS: SERTRALINE 100 MG TAB PO SCH (13:43)
[2023-08-30 14:00] VITALS: BP 133/66; TEMP 97.5; O2SAT 96
[2023-08-30] MEDS: cloNIDine 0.1MG TABLET PO SCH (15:12)
[2023-08-30] MEDS: PINK BISMUTH SUSP 524MG/30ML ORAL SYRINGE PO SCH (17:06)
[2023-08-30] MEDS: INSULIN LISPRO (NovoLOG) PER UNIT SC SCH ×2 (17:07→20:22)
[2023-08-30] MEDS: BUPRENORPHINE/NALOXONE 2-0.5MG SUBLINGUAL TABLET(SUBOXONE) SL SCH (20:15)
[2023-08-30] MEDS: HEPARIN SOD (PORCINE) 5000UNITS/ML 1ML VIAL/SYRINGE SC SCH (20:24)
[2023-08-30 22:00] VITALS: BP 133/69; TEMP 97.9; O2SAT 100
[2023-08-31] MEDS: NS 500 ML IV ONE (00:33)
[2023-08-31 03:34] LABS: HEMATOCRIT 35.2 % (42.0-52.0); HEMOGLOBIN 11.7 g/dl (13.5-17.5); MEAN CORPUSCULAR HEMOGLOBIN 31.8 pg (27.0-33.0); MEAN CORPUSCULAR HGB CONC 33.2 g/dl (32.0-36.5); MEAN CORPUSCULAR VOLUME 95.7 fl (80.0-96.0); RED BLOOD COUNT 3.68 10^6/uL (4.30-6.10); WHITE BLOOD COUNT 4.3 10^3/uL (4.0-10.0)
[2023-08-31 03:56] LABS: BLOOD UREA NITROGEN 9 MG/DL (9-23); CALCIUM LEVEL 7.6 MG/DL (8.5-10.1); CARBON DIOXIDE LEVEL 26 MMOL/L (20-31); CHLORIDE LEVEL 105 MMOL/L (98-107); CREATININE FOR GFR 0.37 MG/DL (0.70-1.30); GLOMERULAR FILTRATION RATE > 60.0 (>56); GLUCOSE, FASTING 175 MG/DL (60-100); MAGNESIUM LEVEL 1.2 MG/DL (1.8-2.4); POTASSIUM SERUM 4.1 MMOL/L (3.5-5.1); SODIUM LEVEL 136 MMOL/L (136-145)
[2023-08-31 04:02] LABS: PLATELET COUNT, AUTOMATED 94 10^3/uL (150-450)
[2023-08-31 06:00] VITALS: BP 132/70; TEMP 97.9; O2SAT 98
[2023-08-31 10:05] LABS: ALBUMIN 2.1 G/DL (3.2-5.2); ALKALINE PHOSPHATASE 122 U/L (46-116); ALT/SGPT 75 U/L (7.0-40); AST/SGOT 128 U/L (<34); BILIRUBIN,DIRECT 0.8 MG/DL (<0.4); BILIRUBIN,TOTAL 1.3 MG/DL (0.3-1.2)
[2023-08-31] MEDS: MAG SULF 1GM/100ML (MAG RUN) 1 GM in IV 1 EA IV SCH (10:25)
[2023-08-31 14:00] VITALS: BP 131/70; TEMP 97.5
[2023-08-31] MEDS: CLOBETASOL PROP 0.05% OINT 30 GM TOP SCH (17:39)
[2023-08-31 22:00] VITALS: BP 129/78; TEMP 97.7; O2SAT 99
[2023-09-01 05:24] VITALS: BP 126/66; TEMP 97.9; O2SAT 96
[2023-09-01 05:58] LABS: HEMATOCRIT 36.2 % (42.0-52.0); MEAN CORPUSCULAR HEMOGLOBIN 31.7 pg (27.0-33.0); MEAN CORPUSCULAR HGB CONC 33.1 g/dl (32.0-36.5); MEAN CORPUSCULAR VOLUME 95.5 fl (80.0-96.0); RED BLOOD COUNT 3.79 10^6/uL (4.30-6.10); WHITE BLOOD COUNT 4.2 10^3/uL (4.0-10.0)
[2023-09-01 06:01] LABS: PLATELET COUNT, AUTOMATED 78 10^3/uL (150-450)
[2023-09-01 06:20] LABS: BLOOD UREA NITROGEN 8 MG/DL (9-23); CALCIUM LEVEL 7.9 MG/DL (8.5-10.1); CARBON DIOXIDE LEVEL 28 MMOL/L (20-31); CHLORIDE LEVEL 101 MMOL/L (98-107); GLOMERULAR FILTRATION RATE > 60.0 (>56); GLUCOSE, FASTING 122 MG/DL (60-100); MAGNESIUM LEVEL 1.7 MG/DL (1.8-2.4); POTASSIUM SERUM 4.1 MMOL/L (3.5-5.1); SODIUM LEVEL 134 MMOL/L (136-145)
[2023-09-01] MEDS: MAG SULF 1GM/100ML (MAG RUN) 1 GM in IV 1 EA IV ONE (13:19)
[2023-09-01 14:00] VITALS: BP 113/64; TEMP 97.7; O2SAT 97
[2023-09-01] MEDS: RIVAROXABAN 10MG TAB (XARELTO) PO SCH (18:23)
[2023-09-01 20:01] VITALS: BP 135/71; TEMP 97.7; O2SAT 98
[2023-09-02 05:15] VITALS: BP 115/51; TEMP 97.3; O2SAT 97
[2023-09-02 06:23] LABS: HEMATOCRIT 37.8 % (42.0-52.0); HEMOGLOBIN 12.5 g/dl (13.5-17.5); MEAN CORPUSCULAR HGB CONC 33.1 g/dl (32.0-36.5); MEAN CORPUSCULAR VOLUME 96.7 fl (80.0-96.0); RED BLOOD COUNT 3.91 10^6/uL (4.30-6.10); WHITE BLOOD COUNT 4.3 10^3/uL (4.0-10.0)
[2023-09-02 06:27] LABS: PLATELET COUNT, AUTOMATED 83 10^3/uL (150-450)
[2023-09-02 06:39] LABS: BLOOD UREA NITROGEN 10 MG/DL (9-23); CALCIUM LEVEL 8.1 MG/DL (8.5-10.1); CARBON DIOXIDE LEVEL 25 MMOL/L (20-31); CHLORIDE LEVEL 104 MMOL/L (98-107); CREATININE FOR GFR 0.42 MG/DL (0.70-1.30); GLOMERULAR FILTRATION RATE > 60.0 (>56); GLUCOSE, FASTING 199 MG/DL (60-100); MAGNESIUM LEVEL 1.5 MG/DL (1.8-2.4); POTASSIUM SERUM 4.3 MMOL/L (3.5-5.1); SODIUM LEVEL 134 MMOL/L (136-145)
[2023-09-02] MEDS: MAG SULF 1GM/100ML (MAG RUN) 1 GM in IV 1 EA IV SCH (08:53)
[2023-09-02 14:00] VITALS: BP 103/58; TEMP 97.5; O2SAT 98
[2023-09-02] MEDS ORDERED: SITA50TAB PO (16:41)
[2023-09-02 21:15] VITALS: BP 136/76; TEMP 97.9; O2SAT 99
[2023-09-02] MEDS ORDERED: PILL CUTTER 1 EACH XX PRN (23:35)
[2023-09-03] MEDS: zolPIDEM TARTRATE 5 MG TAB PO ONE (00:14)
[2023-09-03 05:54] VITALS: BP 102/61; TEMP 97.7; O2SAT 96
[2023-09-03 07:04] LABS: HEMATOCRIT 40.6 % (42.0-52.0); HEMOGLOBIN 13.3 g/dl (13.5-17.5); MEAN CORPUSCULAR HEMOGLOBIN 31.9 pg (27.0-33.0); MEAN CORPUSCULAR HGB CONC 32.8 g/dl (32.0-36.5); MEAN CORPUSCULAR VOLUME 97.4 fl (80.0-96.0); RED BLOOD COUNT 4.17 10^6/uL (4.30-6.10); WHITE BLOOD COUNT 5.2 10^3/uL (4.0-10.0)
[2023-09-03 07:14] LABS: PLATELET COUNT, AUTOMATED 88 10^3/uL (150-450)
[2023-09-03 07:32] LABS: BLOOD UREA NITROGEN 13 MG/DL (9-23); CALCIUM LEVEL 8.3 MG/DL (8.5-10.1); CARBON DIOXIDE LEVEL 25 MMOL/L (20-31); CHLORIDE LEVEL 102 MMOL/L (98-107); CREATININE FOR GFR 0.41 MG/DL (0.70-1.30); GLOMERULAR FILTRATION RATE > 60.0 (>56); GLUCOSE, FASTING 134 MG/DL (60-100); SODIUM LEVEL 133 MMOL/L (136-145)
[2023-09-03] MEDS ORDERED: MAGN500T12 PO (08:18)
[2023-09-03 08:43] VITALS: BP 119/77
== END 2023-09-03 14:40 | disposition home or self-care (01) | DRG 372 ==
LOC: M ED 00:54 → M ED INP 12:01 → M MSPAV 13:16
PROVIDERS: ADMIT Student in an Organized Health Care Education/Training Program; ATTEND Internal Medicine
DX: A04.5 Campylobacter enteritis (principal); E87.20 Acidosis, unspecified; F11.23 Opioid dependence with withdrawal; I10 Essential (primary) hypertension; E11.9 Type 2 diabetes mellitus without complications; B19.20 Unspecified viral hepatitis C without hepatic coma; K76.0 Fatty (change of) liver, not elsewhere classified; E83.42 Hypomagnesemia; E86.0 Dehydration; F17.200 Nicotine dependence, unspecified, uncomplicated; G89.29 Other chronic pain; D64.9 Anemia, unspecified; D69.6 Thrombocytopenia, unspecified; Z79.899 Other long term (current) drug therapy; F10.10 Alcohol abuse, uncomplicated; K57.90 Diverticulosis of intestine, part unspecified, without perforation or abscess without bleeding; F41.9 Anxiety disorder, unspecified

== ENCOUNTER 2023-09-12 11:22 | Observation (INO) | payer MEDICARE, MEDICAID ==
[~2023-09-12] VITALS: Ht 175.3 cm; Wt 65.7 kg
[~2023-09-12 11:22] MED LIST changes: +ALBU8.5H INH; +BUPR1SUB5 SL; +MAGN500T12 PO; +SITA50TAB PO
[2023-09-12 12:09] LABS: BASO # 0.1 10^3/uL (0.0-0.2); BASO % 1.7 % (0.0-1.0); EOS % 0.4 % (0.0-3.0); HEMATOCRIT 41.3 % (42.0-52.0); HEMOGLOBIN 14.2 g/dl (13.5-17.5); LYMPH # 2.1 10^3/uL (1.5-5.0); LYMPH % 25.4 % (24.0-44.0); MEAN CORPUSCULAR HEMOGLOBIN 32.1 pg (27.0-33.0); MEAN CORPUSCULAR HGB CONC 34.4 g/dl (32.0-36.5); MEAN CORPUSCULAR VOLUME 93.4 fl (80.0-96.0); MONO # 0.6 10^3/uL (0.0-0.8); NEUTROPHILS # 5.4 10^3/uL (1.5-8.5); PLATELET COUNT, AUTOMATED 137 10^3/uL (150-450); RED BLOOD COUNT 4.42 10^6/uL (4.30-6.10); WHITE BLOOD COUNT 8.3 10^3/uL (4.0-10.0)
[2023-09-12 13:05] LABS: INR 1.15; PROTHROMBIN TIME 14.3 SECONDS (12.5-14.5)
[2023-09-12 14:01] LABS: CK-MB VALUE MASS < 1.0 NG/ML (<3.6); LIPASE 56 U/L (12-53)
[2023-09-12 14:02] LABS: CPK CREATINE PHOSPHOKINASE 24 U/L (46-171); MB/CK RELATIVE INDEX 4.16 (< OR =4)
[2023-09-12] MEDS: LACTULOSE 20GM/30ML SYRUP UDC PO ONE (14:12)
[2023-09-12 14:17] LABS: ALBUMIN 2.9 G/DL (3.2-5.2); ALKALINE PHOSPHATASE 136 U/L (46-116); ALT/SGPT 118 U/L (7.0-40); AST/SGOT 163 U/L (<34); BILIRUBIN,DIRECT 0.7 MG/DL (<0.4); BLOOD UREA NITROGEN < 5 MG/DL (9-23); CARBON DIOXIDE LEVEL 27 MMOL/L (20-31); CHLORIDE LEVEL 103 MMOL/L (98-107); CREATININE FOR GFR 0.43 MG/DL (0.70-1.30); GLOMERULAR FILTRATION RATE > 60.0 (>56); GLUCOSE, FASTING 348 MG/DL (60-100); MAGNESIUM LEVEL 1.2 MG/DL (1.8-2.4); SODIUM LEVEL 141 MMOL/L (136-145); TOTAL PROTEIN 6.1 G/DL (5.7-8.2)
[2023-09-12] MEDS ORDERED: ISOVUE-370 76% 100ML VIAL As Ordered ONE (14:20)
[2023-09-12 14:22] LABS: ETHYL ALCOHOL (ETHANOL) 0.314 % (0.000-0.010)
[2023-09-12] MEDS: MULTIVITAMIN -ADULT INJECTION 10 ML, THIAMINE INJection 100 MG, FOLIC ACID 1 MG in NS 1... IV ONE (14:22)
[2023-09-12 15:07] LABS: CK-MB VALUE MASS < 1.0 NG/ML (<3.6)
[2023-09-12 15:08] LABS: CPK CREATINE PHOSPHOKINASE 16 U/L (46-171); MB/CK RELATIVE INDEX 6.25 (< OR =4)
[2023-09-12] MEDS: MAG SULF 1GM/100ML (MAG RUN) 1 GM in IV 1 EA IV SCH ×2 (15:35→17:53)
[2023-09-12] MEDS: ASPIRIN 81MG CHEW TABLET PO ONE (15:35)
[2023-09-12] MEDS: POTASSIUM CHLORIDE 10MEQ SR TABLET PO ONE (15:35)
[2023-09-12] MEDS ORDERED: MOM 30ML SUSPENSION UDC PO PRN (16:20)
[2023-09-12] MEDS ORDERED: LORazepam 2 MG TAB PO PRN (16:20)
[2023-09-12] MEDS ORDERED: GLUCAGON INJ 1MG VIAL SC PRN (16:20)
[2023-09-12] MEDS ORDERED: DEXTROSE 50% 50ML SYRINGE IV PRN (16:20)
[2023-09-12] MEDS ORDERED: ACETAMINOPHEN TAB 650MG DOSE (2X325MG) PO PRN (16:20)
[2023-09-12] MEDS ORDERED: MAALOX 30 ML SUSP *UDC PO PRN (16:20)
[2023-09-12] MEDS ORDERED: GLUCOSE 4GM CHEW TABLET PO PRN (16:20)
[2023-09-12] MEDS: BUPRENORPHINE/NALOXONE 8-2MG SUBLINGUAL TABLET(SUBOXONE) SL ONE (16:42)
[2023-09-12 16:45] LABS: CHOLESTEROL LEVEL 150 MG/DL (<200); CHOLESTEROL RISK RATIO 5.97 (<5); HDL CHOLESTEROL 25.1 MG/DL (>40); LDL CHOLESTEROL 93.3 MG/DL (<100); NON-HDL-C 124.9 MG/DL; TRIGLYCERIDES LEVEL 158 MG/DL (<150)
[2023-09-12 16:57] LABS: PROCALCITONIN 0.33 ng/ml
[2023-09-12] MEDS: THIAMINE 100 MG TAB PO SCH (17:53)
[2023-09-12] MEDS: NS 1,000 ML IV SCH (18:56)
[2023-09-12] MEDS ORDERED: ONDANSETRON 4MG 2ML VIAL IV PRN (19:10)
[2023-09-12] MEDS ORDERED: VITA50TA47 PO (19:16)
[2023-09-12] MEDS ORDERED: POTA10808 PO (19:16)
[2023-09-12] MEDS ORDERED: SITA50TAB PO (19:16)
[2023-09-12] MEDS ORDERED: ACET325C5 PO (19:16)
[2023-09-12] MEDS ORDERED: MAGN500T12 PO (19:16)
[2023-09-12] MEDS ORDERED: BETA1OI TOP (19:16)
[2023-09-12] MEDS ORDERED: CLOT1CRE56 TOP (19:16)
[2023-09-12] MEDS ORDERED: NICO21DI37 TD (19:16)
[2023-09-12] MEDS ORDERED: HOME MED LIST COMPLETE! XX SCH (19:20)
[2023-09-12] MEDS: INSULIN LISPRO (NovoLOG) PER UNIT SC SCH ×2 (19:56→20:16)
[2023-09-12] MEDS: DOCUSATE SODIUM 100MG CAPSULE PO SCH (20:16)
[2023-09-12] MEDS: OXAZEPAM 15MG CAP PO SCH (21:50)
[2023-09-13 06:49] LABS: ALBUMIN 2.6 G/DL (3.2-5.2); ALKALINE PHOSPHATASE 123 U/L (46-116); ALT/SGPT 106 U/L (7.0-40); AST/SGOT 137 U/L (<34); BILIRUBIN,TOTAL 1.5 MG/DL (0.3-1.2); BLOOD UREA NITROGEN < 5 MG/DL (9-23); CALCIUM LEVEL 7.6 MG/DL (8.5-10.1); CARBON DIOXIDE LEVEL 25 MMOL/L (20-31); CHLORIDE LEVEL 107 MMOL/L (98-107); CREATININE FOR GFR 0.39 MG/DL (0.70-1.30); GLOMERULAR FILTRATION RATE > 60.0 (>56); GLUCOSE, FASTING 163 MG/DL (60-100); MAGNESIUM LEVEL 1.5 MG/DL (1.8-2.4); POTASSIUM SERUM 4.2 MMOL/L (3.5-5.1); SODIUM LEVEL 141 MMOL/L (136-145); TOTAL PROTEIN 5.7 G/DL (5.7-8.2)
[2023-09-13] MEDS ORDERED: ALBUTEROL 90 MCG/ACT 8GM HFA INHALER INH PRN (06:55)
[2023-09-13] MEDS: MAG SULF 1GM/100ML (MAG RUN) 1 GM in IV 1 EA IV SCH (07:32)
[2023-09-13] MEDS ORDERED: PILL CUTTER 1 EACH XX PRN (08:10)
[2023-09-13] MEDS: cloNIDine 0.1MG TABLET PO SCH (09:00)
[2023-09-13] MEDS: SERTRALINE 100 MG TAB PO SCH (09:56)
[2023-09-13] MEDS: FOLIC ACID 1MG TAB PO SCH (09:56)
[2023-09-13] MEDS: MAGNESIUM OXIDE 400MG TAB (MAG-OX) PO SCH (09:56)
[2023-09-13] MEDS: MULTIVITAMINS/MINERALS THERAP 1 TAB PO SCH (09:56)
[2023-09-13] MEDS: BUPRENORPHINE/NALOXONE 8-2MG SUBLINGUAL TABLET(SUBOXONE) SL SCH (09:57)
[2023-09-13] MEDS: ENOXAPARIN 40MG/0.4ML SYRINGE (J1650 PER 10MG) SC SCH (09:57)
[2023-09-13] MEDS: CLOTRIMAZOLE 1% TOPICAL CREAM 30GM TOP SCH (09:58)
[2023-09-13] MEDS: NICOTINE 7 MG/24 HR TRANSDERMAL TD SCH (09:58)
[2023-09-13] MEDS: BETAMETHASONE VAL 0.1% OINT 15 GM TOP SCH (09:58)
[2023-09-13 10:01] LABS: BASO # 0.1 10^3/uL (0.0-0.2); BASO % 0.8 % (0.0-1.0); EOS # 0.1 10^3/uL (0.0-0.5); EOS % 0.7 % (0.0-3.0); HEMATOCRIT 37.5 % (42.0-52.0); HEMOGLOBIN 12.7 g/dl (13.5-17.5); LYMPH # 1.2 10^3/uL (1.5-5.0); LYMPH % 14.2 % (24.0-44.0); MEAN CORPUSCULAR HEMOGLOBIN 32.1 pg (27.0-33.0); MEAN CORPUSCULAR HGB CONC 33.9 g/dl (32.0-36.5); MEAN CORPUSCULAR VOLUME 94.7 fl (80.0-96.0); MONO # 0.4 10^3/uL (0.0-0.8); NEUTROPHILS # 6.5 10^3/uL (1.5-8.5); NEUTROPHILS % 78.7 % (36.0-66.0); RED BLOOD COUNT 3.96 10^6/uL (4.30-6.10); WHITE BLOOD COUNT 8.2 10^3/uL (4.0-10.0)
[2023-09-13 10:07] LABS: PLATELET COUNT, AUTOMATED 81 10^3/uL (150-450)
[2023-09-13] MEDS: LORazepam 2 MG/ML 1ML VIAL IV PRN (10:30)
[2023-09-13 12:42] LABS: HEMOGLOBIN A1c 6.6 % (4.0-6.0)
[2023-09-13 13:04] LABS: FREE T4 0.92 NG/DL (0.89-1.76); THYROID STIMULATING HORMONE 2.209 uIU/ML (0.55-4.78)
[2023-09-13] MEDS: POTASSIUM CITRATE 1080MG (10MEQ) TAB PO SCH (13:37)
[2023-09-13] MEDS ORDERED: ASPI81CH33 PO (13:52)
[2023-09-13] MEDS ORDERED: ATOR40TA75 PO (13:52)
[2023-09-13 16:55] VITALS: BP 126/59; TEMP 98.2; O2SAT 96
[2023-09-13] MEDS ORDERED: BUPRENORPHINE/NALOXONE 8-2MG SUBLINGUAL TABLET(SUBOXONE) SL SCH (21:00)
== END 2023-09-13 17:08 | disposition home or self-care (01) ==
LOC: EDBD 11:22 → M ED 11:22 → M ED INP 11:23
PROVIDERS: ADMIT Internal Medicine; ATTEND Internal Medicine
DX: R20.2 Paresthesia of skin (principal); G45.9 Transient cerebral ischemic attack, unspecified; R07.89 Other chest pain; F10.10 Alcohol abuse, uncomplicated; I10 Essential (primary) hypertension; B18.2 Chronic viral hepatitis C; R16.0 Hepatomegaly, not elsewhere classified; K76.0 Fatty (change of) liver, not elsewhere classified; K70.10 Alcoholic hepatitis without ascites; E87.6 Hypokalemia; E83.42 Hypomagnesemia; E72.20 Disorder of urea cycle metabolism, unspecified; F11.10 Opioid abuse, uncomplicated; F39 Unspecified mood [affective] disorder; F17.210 Nicotine dependence, cigarettes, uncomplicated; Z79.82 Long term (current) use of aspirin; Z79.899 Other long term (current) drug therapy; Z79.84 Long term (current) use of oral hypoglycemic drugs; Z79.891 Long term (current) use of opiate analgesic
CPT/HCPCS: 36415; 70450; 70496; 70498; 70544; 70551; 71045; 71275; 80048; 80053; 80061; 80076; 81001; 82077; 82140; 82550; 82553; 83036; 83690; 83735; 84145; 84439; 84443; 84484; 85025; 85049; 85055; 85610; 85730; 93005; 93041; 93306; 94760; 96360; 96361; 96372; 97161; 99285; G0378; J1650; J1815; J2060; J3411; J3475; Q9967

== ENCOUNTER 2023-09-16 10:46 | Emergency (ER) | payer MEDICARE, MEDICAID ==
[~2023-09-16] VITALS: Ht 172.7 cm; Wt 70.4 kg
[~2023-09-16 10:46] MED LIST changes: +ACET325C5 PO; +ASPI81CH33 PO; +ATOR40TA75 PO; +CLOT1CRE56 TOP; +NICO21DI37 TD; +VITA50TA47 PO
[2023-09-16 11:25] LABS: BASO # 0.1 10^3/uL (0.0-0.2); BASO % 1.2 % (0.0-1.0); EOS % 0.4 % (0.0-3.0); HEMATOCRIT 36.3 % (42.0-52.0); HEMOGLOBIN 12.7 g/dl (13.5-17.5); LYMPH # 1.1 10^3/uL (1.5-5.0); LYMPH % 21.7 % (24.0-44.0); MEAN CORPUSCULAR HEMOGLOBIN 32.1 pg (27.0-33.0); MEAN CORPUSCULAR VOLUME 91.7 fl (80.0-96.0); MONO # 0.4 10^3/uL (0.0-0.8); MONO % 6.7 % (2.0-8.0); NEUTROPHILS # 3.6 10^3/uL (1.5-8.5); NEUTROPHILS % 69.4 % (36.0-66.0); PLATELET COUNT, AUTOMATED 114 10^3/uL (150-450); RED BLOOD COUNT 3.96 10^6/uL (4.30-6.10); WHITE BLOOD COUNT 5.2 10^3/uL (4.0-10.0)
[2023-09-16 11:31] LABS: ERYTHROCYTE SEDIMENTATION RATE 5 mm/hr (0-20)
[2023-09-16 11:43] LABS: INR 1.17; PARTIAL THROMBOPLASTIN TIME 27.9 SECONDS (24.8-34.2); PROTHROMBIN TIME 14.5 SECONDS (12.5-14.5)
[2023-09-16 11:49] LABS: ETHYL ALCOHOL (ETHANOL) 0.006 % (0.000-0.010); LIPASE 55 U/L (12-53)
[2023-09-16 11:50] LABS: C REACTIVE PROTEIN QUANTITATIV < 0.40 MG/DL (<1.0)
[2023-09-16 11:51] LABS: SALICYLATE LEVEL < 3.0 MG/DL (<30)
[2023-09-16 11:52] LABS: ALBUMIN 2.5 G/DL (3.2-5.2); ALKALINE PHOSPHATASE 142 U/L (46-116); ALT/SGPT 88 U/L (7.0-40); AST/SGOT 120 U/L (<34); BILIRUBIN,DIRECT 0.8 MG/DL (<0.4); BILIRUBIN,TOTAL 1.3 MG/DL (0.3-1.2); BLOOD UREA NITROGEN 8 MG/DL (9-23); CALCIUM LEVEL 8.2 MG/DL (8.5-10.1); CARBON DIOXIDE LEVEL 25 MMOL/L (20-31); CHLORIDE LEVEL 104 MMOL/L (98-107); CK-MB VALUE MASS < 1.0 NG/ML (<3.6); CPK CREATINE PHOSPHOKINASE 29 U/L (46-171); CREATININE FOR GFR 0.41 MG/DL (0.70-1.30); GLOMERULAR FILTRATION RATE > 60.0 (>56); GLUCOSE, FASTING 303 MG/DL (60-100); MB/CK RELATIVE INDEX 3.44 (< OR =4); POTASSIUM SERUM 3.7 MMOL/L (3.5-5.1); SODIUM LEVEL 139 MMOL/L (136-145); TOTAL PROTEIN 5.7 G/DL (5.7-8.2)
[2023-09-16 11:53] LABS: FREE T4 0.84 NG/DL (0.89-1.76); THYROID STIMULATING HORMONE 1.734 uIU/ML (0.55-4.78)
[2023-09-16] MEDS: ONDANSETRON 4MG 2ML VIAL IV ONE (12:38)
[2023-09-16] MEDS: OXAZEPAM 10MG CAP PO ONE (12:39)
[2023-09-16] MEDS: MULTIVITAMIN -ADULT INJECTION 10 ML, THIAMINE INJection 100 MG, FOLIC ACID 1 MG in NS 1... IV ONE (13:05)
[2023-09-16 13:17] LABS: CK-MB VALUE MASS < 1.0 NG/ML (<3.6)
[2023-09-16 13:21] LABS: CPK CREATINE PHOSPHOKINASE 20 U/L (46-171)
[2023-09-16] MEDS: MAALOX 30 ML SUSP *UDC PO ONE (13:50)
[2023-09-16] MEDS: PANTOPRAZOLE 40MG TAB (PROTONIX) PO ONE (13:50)
[2023-09-16] MEDS ORDERED: THIA100TA PO (14:20)
[2023-09-16] MEDS ORDERED: FOLI1TAB11 PO (14:20)
[2023-09-16] MEDS ORDERED: THERTAB52 PO (14:20)
[2023-09-16 14:54] VITALS: BP 152/73; TEMP 97; O2SAT 98
== END 2023-09-16 14:57 | disposition home or self-care (01) ==
LOC: EDBD 10:46 → M ED 11:25
DX: R07.9 Chest pain, unspecified (principal); F10.20 Alcohol dependence, uncomplicated; F19.10 Other psychoactive substance abuse, uncomplicated; F11.10 Opioid abuse, uncomplicated; F17.200 Nicotine dependence, unspecified, uncomplicated; Z79.84 Long term (current) use of oral hypoglycemic drugs; Z79.899 Other long term (current) drug therapy
CPT/HCPCS: 71045; 80048; 80076; 80143; 82077; 82140; 82550; 82553; 83690; 83880; 84439; 84443; 84484; 85025; 85610; 85652; 85730; 86140; 87040; 93005; 93041; 94760; 96365; 96366; 96375; 99284; J2405; J3411

== ENCOUNTER 2023-09-18 12:14 | Inpatient (IN) | payer MEDICARE, MEDICAID ==
[~2023-09-18] VITALS: Ht 175.3 cm; Wt 70.4 kg
[~2023-09-18 12:14] MED LIST changes: +FOLI1TAB11 PO; +THERTAB52 PO
[2023-09-18] MEDS ORDERED: BUPRENORPHINE/NALOXONE 2-0.5MG SUBLINGUAL TABLET(SUBOXONE) SL ONE (12:25)
[2023-09-18] MEDS: BUPRENORPHINE/NALOXONE 8-2MG SUBLINGUAL TABLET(SUBOXONE) SL ONE (12:40)
[2023-09-18] MEDS: LORazepam 2 MG TAB PO PRN ×2 (12:40→18:52)
[2023-09-18] MEDS: NS 1,000 ML IV ONE (12:41)
[2023-09-18] MEDS: PANTOPRAZOLE 40MG VIAL IV ONE (12:41)
[2023-09-18] MEDS: ONDANSETRON 4MG 2ML VIAL IV ONE (12:41)
[2023-09-18 12:44] LABS: BASO # 0.1 10^3/uL (0.0-0.2); BASO % 1.1 % (0.0-1.0); EOS % 0.5 % (0.0-3.0); HEMATOCRIT 42.8 % (42.0-52.0); HEMOGLOBIN 14.5 g/dl (13.5-17.5); LYMPH # 1.8 10^3/uL (1.5-5.0); LYMPH % 21.6 % (24.0-44.0); MEAN CORPUSCULAR HEMOGLOBIN 31.3 pg (27.0-33.0); MEAN CORPUSCULAR HGB CONC 33.9 g/dl (32.0-36.5); MEAN CORPUSCULAR VOLUME 92.4 fl (80.0-96.0); MONO # 0.6 10^3/uL (0.0-0.8); MONO % 7.3 % (2.0-8.0); NEUTROPHILS # 5.9 10^3/uL (1.5-8.5); NEUTROPHILS % 69.1 % (36.0-66.0); PLATELET COUNT, AUTOMATED 142 10^3/uL (150-450); RED BLOOD COUNT 4.63 10^6/uL (4.30-6.10); WHITE BLOOD COUNT 8.5 10^3/uL (4.0-10.0)
[2023-09-18 13:01] LABS: INR 1.14; PROTHROMBIN TIME 14.3 SECONDS (12.5-14.5)
[2023-09-18 13:09] LABS: LIPASE 62 U/L (12-53)
[2023-09-18] MEDS: THIAMINE 100 MG TAB PO SCH (13:17)
[2023-09-18] MEDS: MULTIVITAMINS/MINERALS THERAP 1 TAB PO SCH (13:17)
[2023-09-18] MEDS: FOLIC ACID 1MG TAB PO SCH (13:18)
[2023-09-18 13:22] LABS: ALBUMIN 3.2 G/DL (3.2-5.2); ALKALINE PHOSPHATASE 167 U/L (46-116); ALT/SGPT 110 U/L (7.0-40); AST/SGOT 161 U/L (<34); BILIRUBIN,TOTAL 1.6 MG/DL (0.3-1.2); BLOOD UREA NITROGEN 6 MG/DL (9-23); CALCIUM LEVEL 8.5 MG/DL (8.5-10.1); CARBON DIOXIDE LEVEL 26 MMOL/L (20-31); CHLORIDE LEVEL 98 MMOL/L (98-107); CK-MB VALUE MASS < 1.0 NG/ML (<3.6); CPK CREATINE PHOSPHOKINASE 36 U/L (46-171); CREATININE FOR GFR 0.47 MG/DL (0.70-1.30); GLOMERULAR FILTRATION RATE > 60.0 (>56); GLUCOSE, FASTING 250 MG/DL (60-100); MB/CK RELATIVE INDEX 2.77 (< OR =4); POTASSIUM SERUM 4.6 MMOL/L (3.5-5.1); SODIUM LEVEL 140 MMOL/L (136-145); THYROID STIMULATING HORMONE 1.875 uIU/ML (0.55-4.78); TOTAL PROTEIN 6.9 G/DL (5.7-8.2)
[2023-09-18 13:59] LABS: ETHYL ALCOHOL (ETHANOL) 0.003 % (0.000-0.010); MAGNESIUM LEVEL 1.1 MG/DL (1.8-2.4)
[2023-09-18 14:22] LABS: AMPHETAMINES LEVEL URINE NEGATIVE (NEGATIVE); BARBITURATES URINE NEGATIVE (NEGATIVE); BENZODIAZEPINES URINE NEGATIVE (NEGATIVE); CANNABINOIDS URINE NEGATIVE (NEGATIVE); COCAINE METABOLITE URINE NEGATIVE (NEGATIVE); METHADONE URINE NEGATIVE (NEGATIVE); OPIATES URINE NEGATIVE (NEGATIVE); PHENCYCLIDINE URINE NEGATIVE (NEGATIVE)
[2023-09-18] MEDS ORDERED: ISOVUE-370 76% 100ML VIAL As Ordered ONE (14:24)
[2023-09-18] MEDS ORDERED: MAG SULF 1GM/100ML (MAG RUN) 1 GM in IV 1 EA IV ONE ×2 (14:55→16:00)
[2023-09-18] MEDS ORDERED: GLUCOSE 4GM CHEW TABLET PO PRN (15:55)
[2023-09-18] MEDS ORDERED: DEXTROSE 50% 50ML SYRINGE IV PRN (15:55)
[2023-09-18] MEDS ORDERED: GLUCAGON INJ 1MG VIAL SC PRN (15:55)
[2023-09-18] MEDS ORDERED: THIAMINE 200MG 2ML VIAL IV SCH (16:00)
[2023-09-18 16:28] LABS: VITAMIN B12 LEVEL 1213 PG/ML (211-911)
[2023-09-18] MEDS: MAG SULF 1GM/100ML (MAG RUN) 1 GM in IV 1 EA IV SCH (16:30)
[2023-09-18] MEDS ORDERED: ATOR40TA75 PO (16:38)
[2023-09-18] MEDS ORDERED: ASPI81CH33 PO (16:38)
[2023-09-18] MEDS ORDERED: THERTAB52 PO (16:38)
[2023-09-18] MEDS ORDERED: THIA100T7 PO (16:40)
[2023-09-18] MEDS ORDERED: HOME MED LIST COMPLETE! XX SCH (16:45)
[2023-09-18 17:39] VITALS: BP 153/91; TEMP 97.9; O2SAT 100
[2023-09-18] MEDS: INSULIN LISPRO (NovoLOG) PER UNIT SC SCH ×2 (18:29→21:00)
[2023-09-18 18:49] VITALS: BP 153/91
[2023-09-18] MEDS ORDERED: ALBUTEROL 90 MCG/ACT 8GM HFA INHALER INH PRN (19:20)
[2023-09-18] MEDS ORDERED: PILL CUTTER 1 EACH XX PRN (19:30)
[2023-09-18 19:44] VITALS: BP 165/89
[2023-09-18 19:45] VITALS: BP 165/89; TEMP 97.9; O2SAT 96
[2023-09-18] MEDS ORDERED: BUPRENORPHINE/NALOXONE 2-0.5MG SUBLINGUAL TABLET(SUBOXONE) PO ONE (21:00)
[2023-09-18] MEDS: THIAMINE INJection 500 MG in NS 100 ML IV SCH (21:09)
[2023-09-18] MEDS: BUPRENORPHINE/NALOXONE 8-2MG SUBLINGUAL TABLET(SUBOXONE) SL SCH (21:10)
[2023-09-18] MEDS: cloNIDine 0.1MG TABLET PO SCH (21:11)
[2023-09-18] MEDS: HEPARIN SOD (PORCINE) 5000UNITS/ML 1ML VIAL/SYRINGE SC SCH (21:12)
[2023-09-18] MEDS: SERTRALINE 100 MG TAB PO SCH (21:12)
[2023-09-19 00:09] VITALS: BP 160/90
[2023-09-19 04:09] VITALS: BP 138/76
[2023-09-19] MEDS: THIAMINE INJection 500 MG in NS 100 ML IV SCH (05:51)
[2023-09-19 06:00] VITALS: BP 134/76; TEMP 97.9; O2SAT 94
[2023-09-19 06:50] LABS: HEMATOCRIT 33.9 % (42.0-52.0); MEAN CORPUSCULAR HEMOGLOBIN 32.3 pg (27.0-33.0); MEAN CORPUSCULAR HGB CONC 34.2 g/dl (32.0-36.5); MEAN CORPUSCULAR VOLUME 94.4 fl (80.0-96.0); RED BLOOD COUNT 3.59 10^6/uL (4.30-6.10); WHITE BLOOD COUNT 4.4 10^3/uL (4.0-10.0)
[2023-09-19 07:14] LABS: ALBUMIN 2.4 G/DL (3.2-5.2); ALKALINE PHOSPHATASE 141 U/L (46-116); ALT/SGPT 82 U/L (7.0-40); AST/SGOT 106 U/L (<34); BLOOD UREA NITROGEN 9 MG/DL (9-23); CALCIUM LEVEL 8.3 MG/DL (8.5-10.1); CARBON DIOXIDE LEVEL 31 MMOL/L (20-31); CHLORIDE LEVEL 100 MMOL/L (98-107); CREATININE FOR GFR 0.54 MG/DL (0.70-1.30); GLOMERULAR FILTRATION RATE > 60.0 (>56); GLUCOSE, FASTING 253 MG/DL (60-100); MAGNESIUM LEVEL 1.6 MG/DL (1.8-2.4); POTASSIUM SERUM 4.1 MMOL/L (3.5-5.1); SODIUM LEVEL 136 MMOL/L (136-145); TOTAL PROTEIN 5.3 G/DL (5.7-8.2)
[2023-09-19 07:55] LABS: PLATELET COUNT, AUTOMATED 77 10^3/uL (150-450)
[2023-09-19 07:56] LABS: HEMOGLOBIN 11.6 g/dl (13.5-17.5)
[2023-09-19] MEDS: BUPRENORPHINE/NALOXONE 8-2MG SUBLINGUAL TABLET(SUBOXONE) SL SCH (08:13)
[2023-09-19 08:15] VITALS: BP 133/76
[2023-09-19] MEDS: FOLIC ACID 1MG TAB PO SCH (08:16)
[2023-09-19] MEDS: PRIMIDONE 25MG PER 1/2 TABLET PO SCH (08:16)
[2023-09-19] MEDS: ASPIRIN 81MG CHEW TABLET PO SCH (08:16)
[2023-09-19] MEDS: DAPAGLIFLOZIN PROPANEDIOL 10MG TABLET (FARXIGA) PO SCH (08:16)
[2023-09-19] MEDS: MULTIVITAMINS/MINERALS THERAP 1 TAB PO SCH (08:16)
[2023-09-19] MEDS: ATORVASTATIN 20 MG TAB PO SCH (08:16)
[2023-09-19] MEDS: PANTOPRAZOLE 40MG VIAL IV SCH (08:17)
[2023-09-19] MEDS: MAGNESIUM OXIDE 400MG TAB (MAG-OX) PO SCH (12:36)
[2023-09-19] MEDS: MAG SULF 1GM/100ML (MAG RUN) 1 GM in IV 1 EA IV SCH (12:37)
[2023-09-19 14:00] VITALS: BP 129/75; TEMP 98.1; O2SAT 92
[2023-09-19 19:34] VITALS: BP 118/75; TEMP 98.1
[2023-09-20 05:57] VITALS: BP 122/67; TEMP 97.7; O2SAT 94
[2023-09-20 07:31] LABS: BASO % 0.8 % (0.0-1.0); EOS # 0.1 10^3/uL (0.0-0.5); EOS % 1.8 % (0.0-3.0); HEMATOCRIT 32.8 % (42.0-52.0); HEMOGLOBIN 11.3 g/dl (13.5-17.5); LYMPH # 1.5 10^3/uL (1.5-5.0); LYMPH % 29.4 % (24.0-44.0); MEAN CORPUSCULAR HEMOGLOBIN 31.6 pg (27.0-33.0); MEAN CORPUSCULAR HGB CONC 34.5 g/dl (32.0-36.5); MEAN CORPUSCULAR VOLUME 91.6 fl (80.0-96.0); MONO # 0.4 10^3/uL (0.0-0.8); NEUTROPHILS # 3.1 10^3/uL (1.5-8.5); NEUTROPHILS % 60.6 % (36.0-66.0); RED BLOOD COUNT 3.58 10^6/uL (4.30-6.10)
[2023-09-20 07:50] LABS: PLATELET COUNT, AUTOMATED 71 10^3/uL (150-450)
[2023-09-20 07:58] LABS: BLOOD UREA NITROGEN 9 MG/DL (9-23); CARBON DIOXIDE LEVEL 30 MMOL/L (20-31); CHLORIDE LEVEL 100 MMOL/L (98-107); CREATININE FOR GFR 0.47 MG/DL (0.70-1.30); GLOMERULAR FILTRATION RATE > 60.0 (>56); GLUCOSE, FASTING 205 MG/DL (60-100); MAGNESIUM LEVEL 1.7 MG/DL (1.8-2.4); POTASSIUM SERUM 3.9 MMOL/L (3.5-5.1); SODIUM LEVEL 135 MMOL/L (136-145)
[2023-09-20 09:46] VITALS: BP 95/56
[2023-09-20 10:48] VITALS: BP 98/55
[2023-09-20] MEDS: NS 500 ML IV ONE (13:16)
[2023-09-20 14:45] VITALS: BP 116/97; TEMP 97.3; O2SAT 95
[2023-09-20] MEDS: MAG SULF 1GM/100ML (MAG RUN) 1 GM in IV 1 EA IV SCH (14:47)
[2023-09-20] MEDS: cloNIDine 0.1MG TABLET PO SCH (15:51)
[2023-09-20 20:32] VITALS: BP 108/62; TEMP 97.5; O2SAT 96
[2023-09-20] MEDS: MAGNESIUM OXIDE 400MG TAB (MAG-OX) PO SCH (21:06)
[2023-09-21 05:55] VITALS: BP 114/68; TEMP 97.3; O2SAT 96
[2023-09-21 06:31] LABS: BLOOD UREA NITROGEN 11 MG/DL (9-23); CALCIUM LEVEL 7.8 MG/DL (8.5-10.1); CARBON DIOXIDE LEVEL 28 MMOL/L (20-31); CHLORIDE LEVEL 104 MMOL/L (98-107); CREATININE FOR GFR 0.47 MG/DL (0.70-1.30); GLOMERULAR FILTRATION RATE > 60.0 (>56); GLUCOSE, FASTING 226 MG/DL (60-100); MAGNESIUM LEVEL 1.7 MG/DL (1.8-2.4); POTASSIUM SERUM 4.5 MMOL/L (3.5-5.1); SODIUM LEVEL 138 MMOL/L (136-145)
[2023-09-21] MEDS: MAG SULF 1GM/100ML (MAG RUN) 1 GM in IV 1 EA IV SCH (08:27)
[2023-09-21] MEDS ORDERED: CLONI1TA PO (11:24)
[2023-09-21] MEDS ORDERED: MAGN400T2 PO (11:24)
[2023-09-21] MEDS ORDERED: MYSO50TA5 PO (11:24)
[2023-09-21 14:00] VITALS: BP 152/84; TEMP 97.3; O2SAT 96
[2023-09-21 15:40] VITALS: BP 110/76
[2023-09-21] MEDS ORDERED: THIAMINE 100 MG TAB PO SCH (21:00)
== END 2023-09-21 16:00 | disposition home or self-care (01) | DRG 74 ==
LOC: EDBD 12:14 → M ED 12:14 → M ED INP 12:15 → M MSPAV 17:36 → OBSVTOIN 09-19 10:55
PROVIDERS: ADMIT Internal Medicine; ATTEND Internal Medicine
DX: G62.1 Alcoholic polyneuropathy (principal); F11.20 Opioid dependence, uncomplicated; R29.6 Repeated falls; R26.89 Other abnormalities of gait and mobility; F10.20 Alcohol dependence, uncomplicated; I10 Essential (primary) hypertension; K21.9 Gastro-esophageal reflux disease without esophagitis; F32.A Depression, unspecified; E11.9 Type 2 diabetes mellitus without complications; K76.0 Fatty (change of) liver, not elsewhere classified; R07.89 Other chest pain; K70.0 Alcoholic fatty liver; B18.2 Chronic viral hepatitis C; E11.40 Type 2 diabetes mellitus with diabetic neuropathy, unspecified; Z79.82 Long term (current) use of aspirin; Z98.1 Arthrodesis status; Z79.84 Long term (current) use of oral hypoglycemic drugs; Z79.899 Other long term (current) drug therapy

== ENCOUNTER 2023-09-30 21:51 | Emergency (ER) | payer MEDICARE, MEDICAID ==
[~2023-09-30] VITALS: Ht 175.3 cm; Wt 72.7 kg
[~2023-09-30 21:51] MED LIST changes: +CLONI1TA PO; +MYSO50TA5 PO; +THIA100T7 PO
[2023-09-30 21:57] VITALS: BP 130/73; TEMP 98.1; O2SAT 98
== END 2023-09-30 23:24 | disposition left against medical advice (07) ==
LOC: M ED 21:51
DX: Z53.21 Procedure and treatment not carried out due to patient leaving prior to being seen by health care provider (principal)

== ENCOUNTER 2023-10-02 06:51 | Inpatient (IN) | payer MEDICARE, MEDICAID ==
[~2023-10-02] VITALS: Ht 175.3 cm; Wt 69.3 kg
[2023-10-02] MEDS: FAMOTIDINE 20MG/2ML VIAL IVP ONE (07:57)
[2023-10-02] MEDS: METOCLOPRAMIDE INJ 10MG/2ML VIAL IV ONE (07:57)
[2023-10-02] MEDS: SUCRALFATE 1 GM TAB PO ONE (07:57)
[2023-10-02 08:03] LABS: BASO # 0.1 10^3/uL (0.0-0.2); BASO % 1.3 % (0.0-1.0); HEMOGLOBIN 14.8 g/dl (13.5-17.5); LYMPH # 2.3 10^3/uL (1.5-5.0); LYMPH % 33.9 % (24.0-44.0); MEAN CORPUSCULAR HEMOGLOBIN 32.3 pg (27.0-33.0); MEAN CORPUSCULAR HGB CONC 36.1 g/dl (32.0-36.5); MEAN CORPUSCULAR VOLUME 89.5 fl (80.0-96.0); MONO # 0.4 10^3/uL (0.0-0.8); MONO % 5.7 % (2.0-8.0); NEUTROPHILS % 58.8 % (36.0-66.0); PLATELET COUNT, AUTOMATED 162 10^3/uL (150-450); RED BLOOD COUNT 4.58 10^6/uL (4.30-6.10); WHITE BLOOD COUNT 6.9 10^3/uL (4.0-10.0)
[2023-10-02 08:20] LABS: LIPASE 80 U/L (12-53)
[2023-10-02 08:22] LABS: CPK CREATINE PHOSPHOKINASE 64 U/L (46-171)
[2023-10-02 08:24] LABS: ALBUMIN 3.4 G/DL (3.2-5.2); ALKALINE PHOSPHATASE 167 U/L (46-116); ALT/SGPT 100 U/L (7.0-40); AST/SGOT 150 U/L (<34); BILIRUBIN,DIRECT 0.7 MG/DL (<0.4); BILIRUBIN,TOTAL 1.3 MG/DL (0.3-1.2); BLOOD UREA NITROGEN < 5 MG/DL (9-23); CALCIUM LEVEL 8.9 MG/DL (8.5-10.1); CARBON DIOXIDE LEVEL 26 MMOL/L (20-31); CHLORIDE LEVEL 99 MMOL/L (98-107); CK-MB VALUE MASS < 1.0 NG/ML (<3.6); CREATININE FOR GFR 0.41 MG/DL (0.70-1.30); GLOMERULAR FILTRATION RATE > 60.0 (>56); GLUCOSE, FASTING 278 MG/DL (60-100); MB/CK RELATIVE INDEX 1.56 (< OR =4); POTASSIUM SERUM 3.5 MMOL/L (3.5-5.1); SODIUM LEVEL 137 MMOL/L (136-145); TOTAL PROTEIN 7.1 G/DL (5.7-8.2)
[2023-10-02] MEDS ORDERED: ISOVUE-370 76% 100ML VIAL As Ordered ONE (09:50)
[2023-10-02] MEDS ORDERED: MORPHINE 4 MG/ML 1ML VIAL IV PRN (10:00)
[2023-10-02] MEDS: LORazepam 2 MG TAB PO PRN ×2 (10:22→17:25)
[2023-10-02] MEDS: ONDANSETRON 4MG 2ML VIAL IV ONE (10:34)
[2023-10-02] MEDS: FOLIC ACID 1MG TAB PO SCH (11:19)
[2023-10-02] MEDS: THIAMINE 100 MG TAB PO SCH ×2 (11:19→21:29)
[2023-10-02] MEDS: MULTIVITAMINS/MINERALS THERAP 1 TAB PO SCH (11:19)
[2023-10-02] MEDS ORDERED: DIVA500T9 PO (14:14)
[2023-10-02] MEDS ORDERED: SUBO4MIS SL (14:14)
[2023-10-02] MEDS ORDERED: MIRT-88 PO (14:14)
[2023-10-02] MEDS ORDERED: QUET100T2 PO (14:14)
[2023-10-02] MEDS ORDERED: MAGN400T2 PO (14:14)
[2023-10-02] MEDS ORDERED: MAGN500T12 PO (14:14)
[2023-10-02] MEDS ORDERED: PRIM50TA6 PO (14:14)
[2023-10-02] MEDS ORDERED: CLONI1TA PO (14:14)
[2023-10-02] MEDS ORDERED: SERT-141 PO (14:14)
[2023-10-02] MEDS ORDERED: FOLI1TAB11 PO (14:14)
[2023-10-02] MEDS ORDERED: MELA3TAB30 PO (14:14)
[2023-10-02] MEDS ORDERED: BETA115CR TOP (14:30)
[2023-10-02] MEDS ORDERED: HOME MED LIST COMPLETE! XX SCH (14:40)
[2023-10-02 14:56] LABS: MAGNESIUM LEVEL 1.4 MG/DL (1.8-2.4)
[2023-10-02] MEDS ORDERED: ONDANSETRON 4MG 2ML VIAL IV PRN (16:10)
[2023-10-02] MEDS ORDERED: GLUCAGON INJ 1MG VIAL SC PRN (16:30)
[2023-10-02] MEDS ORDERED: GLUCOSE 4 GM CHEW PO PRN (16:30)
[2023-10-02] MEDS ORDERED: DEXTROSE 50% 50ML SYRINGE IV PRN (16:30)
[2023-10-02] MEDS: PANTOPRAZOLE 40MG VIAL IV ONE (16:51)
[2023-10-02] MEDS: INSULIN LISPRO (NovoLOG) PER UNIT SC SCH ×2 (16:51→20:47)
[2023-10-02] MEDS ORDERED: PILL CUTTER 1 EACH XX PRN (16:55)
[2023-10-02 17:22] LABS: PHOSPHORUS LEVEL 3.4 MG/DL (2.5-4.9)
[2023-10-02] MEDS: NS 500 ML IV ONE (18:03)
[2023-10-02] MEDS: MAG SULF 1GM/100ML (MAG RUN) 1 GM in IV 1 EA IV SCH (18:03)
[2023-10-02] MEDS ORDERED: cloNIDine 0.1MG TABLET PO SCH (21:00)
[2023-10-02] MEDS: BETAMETHASONE VAL 0.1% CR 15 GM TOP SCH (21:00)
[2023-10-02] MEDS: CLOTRIMAZOLE 1% TOPICAL CREAM 30GM TOP SCH (21:00)
[2023-10-02] MEDS: POTASSIUM CHLORIDE INJ 40 MEQ in LR 1,000 ML IV SCH (21:27)
[2023-10-02] MEDS: cloNIDine 0.1MG TABLET PO SCH (21:28)
[2023-10-02] MEDS: MAGNESIUM OXIDE 400MG TAB (MAG-OX) PO SCH (21:29)
[2023-10-02] MEDS: BUPRENORPHINE/NALOXONE 8-2MG SUBLINGUAL TABLET(SUBOXONE) SL SCH (21:29)
[2023-10-02] MEDS: SERTRALINE 100 MG TAB PO SCH (21:29)
[2023-10-02] MEDS: DOCUSATE SODIUM 100MG CAPSULE PO SCH (21:29)
[2023-10-02 22:43] LABS: AMPHETAMINES LEVEL URINE NEGATIVE (NEGATIVE); BARBITURATES URINE NEGATIVE (NEGATIVE); BENZODIAZEPINES URINE NEGATIVE (NEGATIVE); CANNABINOIDS URINE NEGATIVE (NEGATIVE); COCAINE METABOLITE URINE POSITIVE (NEGATIVE); METHADONE URINE NEGATIVE (NEGATIVE); OPIATES URINE NEGATIVE (NEGATIVE); PHENCYCLIDINE URINE NEGATIVE (NEGATIVE)
[2023-10-02 23:21] VITALS: BP 139/72; TEMP 97.8; O2SAT 91
[2023-10-03] VITALS (11 sets, daily range): BP systolic 125–161; BP diastolic 60–85; TEMP 97.7–98.6; O2SAT 94–97
[2023-10-03 06:45] LABS: HEMATOCRIT 38.3 % (42.0-52.0); HEMOGLOBIN 13.4 g/dl (13.5-17.5); MEAN CORPUSCULAR HEMOGLOBIN 32.6 pg (27.0-33.0); MEAN CORPUSCULAR VOLUME 93.2 fl (80.0-96.0); PLATELET COUNT, AUTOMATED 115 10^3/uL (150-450); RED BLOOD COUNT 4.11 10^6/uL (4.30-6.10); WHITE BLOOD COUNT 6.5 10^3/uL (4.0-10.0)
[2023-10-03 06:46] LABS: ALBUMIN 2.7 G/DL (3.2-5.2); ALKALINE PHOSPHATASE 131 U/L (46-116); ALT/SGPT 71 U/L (7.0-40); AST/SGOT 97 U/L (<34); BILIRUBIN,TOTAL 1.8 MG/DL (0.3-1.2); BLOOD UREA NITROGEN 9 MG/DL (9-23); CALCIUM LEVEL 8.4 MG/DL (8.5-10.1); CARBON DIOXIDE LEVEL 30 MMOL/L (20-31); CHLORIDE LEVEL 99 MMOL/L (98-107); CREATININE FOR GFR 0.52 MG/DL (0.70-1.30); GLOMERULAR FILTRATION RATE > 60.0 (>56); GLUCOSE, FASTING 172 MG/DL (60-100); POTASSIUM SERUM 4.2 MMOL/L (3.5-5.1); SODIUM LEVEL 135 MMOL/L (136-145); TOTAL PROTEIN 5.6 G/DL (5.7-8.2)
[2023-10-03] MEDS: LORazepam 2 MG/ML 1ML VIAL IV STA (06:55)
[2023-10-03] MEDS: SUCRALFATE 1 GM TAB PO ONE (07:08)
[2023-10-03] MEDS: BUPRENORPHINE/NALOXONE 8-2MG SUBLINGUAL TABLET(SUBOXONE) SL SCH (09:04)
[2023-10-03] MEDS: PRIMIDONE 50MG TAB PO SCH (09:04)
[2023-10-03] MEDS: FOLIC ACID 1MG TAB PO SCH (09:04)
[2023-10-03] MEDS: MULTIVITAMINS/MINERALS THERAP 1 TAB PO SCH (09:05)
[2023-10-03 15:15] LABS: MAGNESIUM LEVEL 1.7 MG/DL (1.8-2.4); PHOSPHORUS LEVEL 3.8 MG/DL (2.5-4.9)
[2023-10-04] VITALS (10 sets, daily range): BP systolic 107–137; BP diastolic 57–73; TEMP 96.8–99.7; O2SAT 95–96
[2023-10-04 06:58] LABS: ALBUMIN 2.6 G/DL (3.2-5.2); ALKALINE PHOSPHATASE 126 U/L (46-116); ALT/SGPT 58 U/L (7.0-40); AST/SGOT 79 U/L (<34); BILIRUBIN,TOTAL 2.8 MG/DL (0.3-1.2); BLOOD UREA NITROGEN 9 MG/DL (9-23); CALCIUM LEVEL 8.2 MG/DL (8.5-10.1); CARBON DIOXIDE LEVEL 26 MMOL/L (20-31); CHLORIDE LEVEL 98 MMOL/L (98-107); CREATININE FOR GFR 0.49 MG/DL (0.70-1.30); GLOMERULAR FILTRATION RATE > 60.0 (>56); GLUCOSE, FASTING 115 MG/DL (60-100); POTASSIUM SERUM 4.8 MMOL/L (3.5-5.1); SODIUM LEVEL 131 MMOL/L (136-145); TOTAL PROTEIN 5.7 G/DL (5.7-8.2)
[2023-10-04 07:00] LABS: BASO # 0.1 10^3/uL (0.0-0.2); BASO % 0.6 % (0.0-1.0); EOS # 0.1 10^3/uL (0.0-0.5); HEMATOCRIT 36.8 % (42.0-52.0); HEMOGLOBIN 12.7 g/dl (13.5-17.5); LYMPH # 1.2 10^3/uL (1.5-5.0); MEAN CORPUSCULAR HEMOGLOBIN 32.8 pg (27.0-33.0); MEAN CORPUSCULAR HGB CONC 34.5 g/dl (32.0-36.5); MEAN CORPUSCULAR VOLUME 95.1 fl (80.0-96.0); MONO # 0.4 10^3/uL (0.0-0.8); MONO % 5.6 % (2.0-8.0); NEUTROPHILS # 6.1 10^3/uL (1.5-8.5); NEUTROPHILS % 77.4 % (36.0-66.0); RED BLOOD COUNT 3.87 10^6/uL (4.30-6.10); WHITE BLOOD COUNT 7.9 10^3/uL (4.0-10.0)
[2023-10-04 07:24] LABS: PLATELET COUNT, AUTOMATED 82 10^3/uL (150-450)
[2023-10-04] MEDS: BETAMETHASONE VAL 0.1% OINT 15 GM TOP SCH (09:00)
[2023-10-04] MEDS: cloNIDine 0.1MG TABLET PO SCH (09:00)
[2023-10-04] MEDS: PRIMIDONE 25MG PER 1/2 TABLET PO SCH (10:42)
[2023-10-04] MEDS: NICOTINE 21MG/24HR 1 EA TRANSDERMAL TD SCH (12:05)
[2023-10-04] MEDS: D5W/0.9% SODIUM CHLORIDE 1,000 ML IV SCH (14:48)
[2023-10-04] MEDS: ACETAMINOPHEN TAB 650MG DOSE (2X325MG) PO PRN (15:20)
[2023-10-04 15:37] LABS: BLOOD UREA NITROGEN 10 MG/DL (9-23); CALCIUM LEVEL 7.9 MG/DL (8.5-10.1); CARBON DIOXIDE LEVEL 26 MMOL/L (20-31); CHLORIDE LEVEL 96 MMOL/L (98-107); GLOMERULAR FILTRATION RATE > 60.0 (>56); GLUCOSE, FASTING 82 MG/DL (60-100); POTASSIUM SERUM 4.6 MMOL/L (3.5-5.1); SODIUM LEVEL 128 MMOL/L (136-145)
[2023-10-04] MEDS: MAGNESIUM OXIDE 400MG TAB (MAG-OX) PO SCH (20:44)
[2023-10-05] VITALS (9 sets, daily range): BP systolic 111–169; BP diastolic 59–81; TEMP 97.8–98.9; O2SAT 95–99
[2023-10-05 06:07] LABS: BASO % 0.4 % (0.0-1.0); EOS # 0.1 10^3/uL (0.0-0.5); EOS % 0.8 % (0.0-3.0); HEMATOCRIT 33.4 % (42.0-52.0); HEMOGLOBIN 11.7 g/dl (13.5-17.5); LYMPH # 0.9 10^3/uL (1.5-5.0); LYMPH % 12.4 % (24.0-44.0); MEAN CORPUSCULAR HEMOGLOBIN 33.1 pg (27.0-33.0); MEAN CORPUSCULAR VOLUME 94.4 fl (80.0-96.0); MONO # 0.5 10^3/uL (0.0-0.8); MONO % 5.9 % (2.0-8.0); NEUTROPHILS # 6.1 10^3/uL (1.5-8.5); NEUTROPHILS % 79.8 % (36.0-66.0); RED BLOOD COUNT 3.54 10^6/uL (4.30-6.10); WHITE BLOOD COUNT 7.6 10^3/uL (4.0-10.0)
[2023-10-05 06:09] LABS: PLATELET COUNT, AUTOMATED 60 10^3/uL (150-450)
[2023-10-05 06:34] LABS: ALBUMIN 2.5 G/DL (3.2-5.2); ALKALINE PHOSPHATASE 125 U/L (46-116); ALT/SGPT 51 U/L (7.0-40); AST/SGOT 69 U/L (<34); BILIRUBIN,TOTAL 2.2 MG/DL (0.3-1.2); BLOOD UREA NITROGEN 7 MG/DL (9-23); CALCIUM LEVEL 7.6 MG/DL (8.5-10.1); CARBON DIOXIDE LEVEL 25 MMOL/L (20-31); CHLORIDE LEVEL 95 MMOL/L (98-107); CREATININE FOR GFR 0.41 MG/DL (0.70-1.30); GLOMERULAR FILTRATION RATE > 60.0 (>56); GLUCOSE, FASTING 232 MG/DL (60-100); MAGNESIUM LEVEL 1.5 MG/DL (1.8-2.4); PHOSPHORUS LEVEL 2.5 MG/DL (2.5-4.9); POTASSIUM SERUM 4.2 MMOL/L (3.5-5.1); SODIUM LEVEL 126 MMOL/L (136-145); TOTAL PROTEIN 5.5 G/DL (5.7-8.2)
[2023-10-05] MEDS: LORazepam 2 MG/ML 1ML VIAL IV PRN (06:49)
[2023-10-05 08:25] LABS: FREE T4 0.92 NG/DL (0.89-1.76); THYROID STIMULATING HORMONE 2.969 uIU/ML (0.55-4.78)
[2023-10-05] MEDS: MAG SULF 1GM/100ML (MAG RUN) 1 GM in IV 1 EA IV ONE (08:28)
[2023-10-05 08:45] LABS: CORTISOL AM 23.4 UG/DL (4.3-22.4)
[2023-10-05 08:51] LABS: SODIUM,RANDOM URINE 207 MMOL/L
[2023-10-05 09:20] LABS: OSMOLALITY URINE 566 MOSM/KG (50-1400)
[2023-10-05 09:20] LABS: OSMOLALITY SERUM 267 MOSM/KG (275-295)
[2023-10-05] MEDS: SODIUM PHOSPHATE INJ 30 MMOL in D5W 500 ML IV ONE (10:22)
[2023-10-05] MEDS: ALBUTEROL 90 MCG/ACT 8GM HFA INHALER INH PRN (13:06)
[2023-10-05] MEDS: TOLVAPTAN 7.5 MG HALF-TAB PO ONE (13:32)
[2023-10-05 14:41] LABS: BLOOD UREA NITROGEN 6 MG/DL (9-23); CALCIUM LEVEL 7.5 MG/DL (8.5-10.1); CARBON DIOXIDE LEVEL 26 MMOL/L (20-31); CHLORIDE LEVEL 94 MMOL/L (98-107); CREATININE FOR GFR 0.45 MG/DL (0.70-1.30); GLOMERULAR FILTRATION RATE > 60.0 (>56); GLUCOSE, FASTING 164 MG/DL (60-100); POTASSIUM SERUM 3.5 MMOL/L (3.5-5.1); SODIUM LEVEL 126 MMOL/L (136-145)
[2023-10-05] MEDS: MULTIVITAMIN -ADULT INJECTION 10 ML, THIAMINE INJection 100 MG, FOLIC ACID 1 MG in NS 1... IV SCH (14:44)
[2023-10-05 18:47] LABS: BLOOD UREA NITROGEN 7 MG/DL (9-23); CALCIUM LEVEL 7.7 MG/DL (8.5-10.1); CARBON DIOXIDE LEVEL 27 MMOL/L (20-31); CHLORIDE LEVEL 98 MMOL/L (98-107); CREATININE FOR GFR 0.49 MG/DL (0.70-1.30); GLOMERULAR FILTRATION RATE > 60.0 (>56); GLUCOSE, FASTING 214 MG/DL (60-100); POTASSIUM SERUM 3.5 MMOL/L (3.5-5.1); SODIUM LEVEL 131 MMOL/L (136-145)
[2023-10-05 23:14] LABS: BLOOD UREA NITROGEN 6 MG/DL (9-23); CALCIUM LEVEL 7.3 MG/DL (8.5-10.1); CARBON DIOXIDE LEVEL 25 MMOL/L (20-31); CHLORIDE LEVEL 104 MMOL/L (98-107); CREATININE FOR GFR 0.45 MG/DL (0.70-1.30); GLOMERULAR FILTRATION RATE > 60.0 (>56); GLUCOSE, FASTING 150 MG/DL (60-100); POTASSIUM SERUM 4.2 MMOL/L (3.5-5.1); SODIUM LEVEL 135 MMOL/L (136-145)
[2023-10-06] VITALS (13 sets, daily range): BP systolic 112–155; BP diastolic 66–87; TEMP 97.4–98.9; O2SAT 95–98
[2023-10-06 06:59] LABS: BASO % 0.4 % (0.0-1.0); EOS % 0.7 % (0.0-3.0); HEMOGLOBIN 11.4 g/dl (13.5-17.5); LYMPH # 0.6 10^3/uL (1.5-5.0); LYMPH % 10.7 % (24.0-44.0); MEAN CORPUSCULAR HEMOGLOBIN 33.1 pg (27.0-33.0); MEAN CORPUSCULAR HGB CONC 34.5 g/dl (32.0-36.5); MEAN CORPUSCULAR VOLUME 95.9 fl (80.0-96.0); MONO # 0.4 10^3/uL (0.0-0.8); MONO % 8.1 % (2.0-8.0); NEUTROPHILS # 4.3 10^3/uL (1.5-8.5); NEUTROPHILS % 79.5 % (36.0-66.0); RED BLOOD COUNT 3.44 10^6/uL (4.30-6.10); WHITE BLOOD COUNT 5.4 10^3/uL (4.0-10.0)
[2023-10-06 07:08] LABS: PLATELET COUNT, AUTOMATED 74 10^3/uL (150-450)
[2023-10-06 07:21] LABS: ALBUMIN 2.4 G/DL (3.2-5.2); ALKALINE PHOSPHATASE 117 U/L (46-116); ALT/SGPT 42 U/L (7.0-40); AST/SGOT 48 U/L (<34); BILIRUBIN,TOTAL 1.3 MG/DL (0.3-1.2); BLOOD UREA NITROGEN 5 MG/DL (9-23); CALCIUM LEVEL 7.4 MG/DL (8.5-10.1); CARBON DIOXIDE LEVEL 25 MMOL/L (20-31); CHLORIDE LEVEL 103 MMOL/L (98-107); CREATININE FOR GFR 0.43 MG/DL (0.70-1.30); GLOMERULAR FILTRATION RATE > 60.0 (>56); GLUCOSE, FASTING 263 MG/DL (60-100); MAGNESIUM LEVEL 1.6 MG/DL (1.8-2.4); PHOSPHORUS LEVEL 2.9 MG/DL (2.5-4.9); POTASSIUM SERUM 4.2 MMOL/L (3.5-5.1); SODIUM LEVEL 135 MMOL/L (136-145); TOTAL PROTEIN 5.3 G/DL (5.7-8.2)
[2023-10-06] MEDS: MAG SULF 1GM/100ML (MAG RUN) 1 GM in IV 1 EA IV SCH (07:49)
[2023-10-06] MEDS ORDERED: MAG SULF 1GM/100ML (MAG RUN) 1 GM in IV 1 EA IV SCH (12:50)
[2023-10-07] VITALS (10 sets, daily range): BP systolic 107–161; BP diastolic 69–89; TEMP 97.5–97.9; O2SAT 98–100
[2023-10-07 06:43] LABS: BASO % 0.6 % (0.0-1.0); EOS # 0.1 10^3/uL (0.0-0.5); EOS % 1.5 % (0.0-3.0); HEMATOCRIT 33.7 % (42.0-52.0); HEMOGLOBIN 11.4 g/dl (13.5-17.5); LYMPH # 0.8 10^3/uL (1.5-5.0); LYMPH % 16.5 % (24.0-44.0); MEAN CORPUSCULAR HEMOGLOBIN 32.2 pg (27.0-33.0); MEAN CORPUSCULAR HGB CONC 33.8 g/dl (32.0-36.5); MEAN CORPUSCULAR VOLUME 95.2 fl (80.0-96.0); MONO # 0.4 10^3/uL (0.0-0.8); MONO % 9.3 % (2.0-8.0); NEUTROPHILS # 3.4 10^3/uL (1.5-8.5); NEUTROPHILS % 71.5 % (36.0-66.0); RED BLOOD COUNT 3.54 10^6/uL (4.30-6.10); WHITE BLOOD COUNT 4.7 10^3/uL (4.0-10.0)
[2023-10-07 06:53] LABS: PLATELET COUNT, AUTOMATED 82 10^3/uL (150-450)
[2023-10-07 07:32] LABS: ALBUMIN 2.3 G/DL (3.2-5.2); ALKALINE PHOSPHATASE 125 U/L (46-116); ALT/SGPT 36 U/L (7.0-40); AST/SGOT 43 U/L (<34); BILIRUBIN,TOTAL 0.8 MG/DL (0.3-1.2); BLOOD UREA NITROGEN < 5 MG/DL (9-23); CALCIUM LEVEL 7.1 MG/DL (8.5-10.1); CARBON DIOXIDE LEVEL 24 MMOL/L (20-31); CHLORIDE LEVEL 101 MMOL/L (98-107); CREATININE FOR GFR 0.34 MG/DL (0.70-1.30); GLOMERULAR FILTRATION RATE > 60.0 (>56); GLUCOSE, FASTING 248 MG/DL (60-100); MAGNESIUM LEVEL 1.4 MG/DL (1.8-2.4); PHOSPHORUS LEVEL 2.3 MG/DL (2.5-4.9); POTASSIUM SERUM 3.9 MMOL/L (3.5-5.1); SODIUM LEVEL 133 MMOL/L (136-145); TOTAL PROTEIN 5.3 G/DL (5.7-8.2)
[2023-10-07] MEDS: MAG SULF 1GM/100ML (MAG RUN) 1 GM in IV 1 EA IV SCH (08:44)
[2023-10-07] MEDS ORDERED: PANT40TA29 PO (11:12)
[2023-10-07] MEDS: SODIUM PHOSPHATE INJ 30 MMOL in D5W 500 ML IV ONE (11:36)
[2023-10-07] MEDS: PANTOPRAZOLE 40MG TAB (PROTONIX) PO SCH (11:36)
[2023-10-07] MEDS: SODIUM CHLORIDE 1 GM TAB PO SCH (17:24)
[2023-10-08 06:00] VITALS: BP 136/74
[2023-10-08 08:26] LABS: HEMATOCRIT 36.5 % (42.0-52.0); HEMOGLOBIN 12.5 g/dl (13.5-17.5); MEAN CORPUSCULAR HEMOGLOBIN 32.5 pg (27.0-33.0); MEAN CORPUSCULAR HGB CONC 34.2 g/dl (32.0-36.5); MEAN CORPUSCULAR VOLUME 94.8 fl (80.0-96.0); PLATELET COUNT, AUTOMATED 114 10^3/uL (150-450); RED BLOOD COUNT 3.85 10^6/uL (4.30-6.10)
[2023-10-08] MEDS: MAGNESIUM OXIDE 400MG TAB (MAG-OX) PO SCH (08:50)
[2023-10-08 08:57] LABS: ALBUMIN 2.2 G/DL (3.2-5.2); ALKALINE PHOSPHATASE 124 U/L (46-116); ALT/SGPT 36 U/L (7.0-40); AST/SGOT 37 U/L (<34); BILIRUBIN,TOTAL 0.8 MG/DL (0.3-1.2); BLOOD UREA NITROGEN < 5 MG/DL (9-23); CARBON DIOXIDE LEVEL 27 MMOL/L (20-31); CHLORIDE LEVEL 101 MMOL/L (98-107); GLOMERULAR FILTRATION RATE > 60.0 (>56); GLUCOSE, FASTING 200 MG/DL (60-100); MAGNESIUM LEVEL 1.4 MG/DL (1.8-2.4); PHOSPHORUS LEVEL 3.8 MG/DL (2.5-4.9); POTASSIUM SERUM 4.3 MMOL/L (3.5-5.1); SODIUM LEVEL 134 MMOL/L (136-145); TOTAL PROTEIN 5.8 G/DL (5.7-8.2)
[2023-10-08 14:00] VITALS: BP 127/71; TEMP 97.7; O2SAT 96
[2023-10-08 14:19] VITALS: BP 127/71
[2023-10-08] MEDS: MAG SULF 1GM/100ML (MAG RUN) 1 GM in IV 1 EA IV SCH (16:10)
[2023-10-08] MEDS: HEPARIN SOD (PORCINE) 5000UNITS/ML 1ML VIAL/SYRINGE SQ SCH (20:49)
[2023-10-08] MEDS: THIAMINE 100 MG TAB PO SCH (20:49)
[2023-10-08 21:30] VITALS: BP 140/84; TEMP 97.7; O2SAT 97
[2023-10-08 22:00] VITALS: BP 140/84
[2023-10-09 06:00] VITALS: BP 138/69; TEMP 97.7; O2SAT 96
[2023-10-09 06:24] LABS: HEMATOCRIT 36.1 % (42.0-52.0); HEMOGLOBIN 12.4 g/dl (13.5-17.5); MEAN CORPUSCULAR HEMOGLOBIN 32.4 pg (27.0-33.0); MEAN CORPUSCULAR HGB CONC 34.3 g/dl (32.0-36.5); MEAN CORPUSCULAR VOLUME 94.3 fl (80.0-96.0); PLATELET COUNT, AUTOMATED 119 10^3/uL (150-450); RED BLOOD COUNT 3.83 10^6/uL (4.30-6.10); WHITE BLOOD COUNT 4.6 10^3/uL (4.0-10.0)
[2023-10-09 06:50] LABS: ALBUMIN 2.4 G/DL (3.2-5.2); ALKALINE PHOSPHATASE 130 U/L (46-116); ALT/SGPT 33 U/L (7.0-40); AST/SGOT 30 U/L (<34); BILIRUBIN,TOTAL 0.7 MG/DL (0.3-1.2); BLOOD UREA NITROGEN < 5 MG/DL (9-23); CALCIUM LEVEL 8.1 MG/DL (8.5-10.1); CARBON DIOXIDE LEVEL 29 MMOL/L (20-31); CHLORIDE LEVEL 99 MMOL/L (98-107); CREATININE FOR GFR 0.41 MG/DL (0.70-1.30); GLOMERULAR FILTRATION RATE > 60.0 (>56); GLUCOSE, FASTING 241 MG/DL (60-100); MAGNESIUM LEVEL 1.6 MG/DL (1.8-2.4); PHOSPHORUS LEVEL 3.3 MG/DL (2.5-4.9); SODIUM LEVEL 133 MMOL/L (136-145); TOTAL PROTEIN 5.9 G/DL (5.7-8.2)
[2023-10-09 08:30] VITALS: BP 139/68
[2023-10-09] MEDS: FOLIC ACID 1MG TAB PO SCH (08:32)
[2023-10-09] MEDS: MULTIVITAMINS/MINERALS THERAP 1 TAB PO SCH (08:33)
[2023-10-09 08:34] VITALS: BP 139/68
[2023-10-09] MEDS ORDERED: SODI1TAB6 PO (13:26)
== END 2023-10-09 14:48 | disposition home or self-care (01) | DRG 392 ==
LOC: EDBD 06:51 → M ED 06:51 → M ED INP 16:09 → ENRESERV 22:24 → M PCU 23:11 → M MSPAV 10-06 17:15
PROVIDERS: ADMIT Hospitalist; ATTEND Internal Medicine
DX: K29.20 Alcoholic gastritis without bleeding (principal); E22.2 Syndrome of inappropriate secretion of antidiuretic hormone; F10.239 Alcohol dependence with withdrawal, unspecified; D69.6 Thrombocytopenia, unspecified; E83.39 Other disorders of phosphorus metabolism; F41.9 Anxiety disorder, unspecified; F32.A Depression, unspecified; I10 Essential (primary) hypertension; E83.42 Hypomagnesemia; E78.5 Hyperlipidemia, unspecified; F17.210 Nicotine dependence, cigarettes, uncomplicated; E11.42 Type 2 diabetes mellitus with diabetic polyneuropathy; Z79.82 Long term (current) use of aspirin; Z79.84 Long term (current) use of oral hypoglycemic drugs; Z79.899 Other long term (current) drug therapy; Z71.6 Tobacco abuse counseling; Z87.891 Personal history of nicotine dependence

== ENCOUNTER 2023-10-14 11:07 | Emergency (ER) | payer MEDICARE, MEDICAID ==
[~2023-10-14] VITALS: Ht 175.3 cm; Wt 70.9 kg
[~2023-10-14 11:07] MED LIST changes: +BETA115CR TOP; +MELA3TAB30 PO; +MIRT-88 PO; +PANT40TA29 PO; +PRIM50TA6 PO; +QUET100T2 PO; +SERT-141 PO; +SODI1TAB6 PO
[2023-10-14] MEDS: HALOPERIDOL LACTATE 5MG/ML VIAL IV ONE (11:59)
[2023-10-14 12:21] VITALS: TEMP 99.1
[2023-10-14 13:22] VITALS: O2SAT 98
[2023-10-14 14:10] VITALS: BP 139/63
== END 2023-10-14 14:15 | disposition home or self-care (01) ==
LOC: M ED 11:07 → EDBD 11:07 → M ED 14:15
DX: F10.10 Alcohol abuse, uncomplicated (principal); Z76.5 Malingerer [conscious simulation]; E11.9 Type 2 diabetes mellitus without complications; I10 Essential (primary) hypertension; Z86.19 Personal history of other infectious and parasitic diseases; F17.200 Nicotine dependence, unspecified, uncomplicated; F14.10 Cocaine abuse, uncomplicated; Z79.82 Long term (current) use of aspirin; Z79.899 Other long term (current) drug therapy
CPT/HCPCS: 96374; 99284; J1630

== ENCOUNTER 2023-11-14 17:06 | Inpatient (IN) | payer MEDICARE, MEDICAID ==
[~2023-11-14] VITALS: Ht 175.3 cm; Wt 77.3 kg
[2023-11-14 18:01] LABS: BASO # 0.1 10^3/uL (0.0-0.2); BASO % 1.5 % (0.0-1.0); EOS # 0.1 10^3/uL (0.0-0.5); HEMATOCRIT 36.8 % (42.0-52.0); HEMOGLOBIN 13.3 g/dl (13.5-17.5); LYMPH # 1.6 10^3/uL (1.5-5.0); LYMPH % 26.7 % (24.0-44.0); MEAN CORPUSCULAR HEMOGLOBIN 32.7 pg (27.0-33.0); MEAN CORPUSCULAR HGB CONC 36.1 g/dl (32.0-36.5); MEAN CORPUSCULAR VOLUME 90.4 fl (80.0-96.0); MONO # 0.4 10^3/uL (0.0-0.8); MONO % 6.4 % (2.0-8.0); NEUTROPHILS # 3.8 10^3/uL (1.5-8.5); NEUTROPHILS % 63.9 % (36.0-66.0); PLATELET COUNT, AUTOMATED 174 10^3/uL (150-450); RED BLOOD COUNT 4.07 10^6/uL (4.30-6.10); WHITE BLOOD COUNT 5.9 10^3/uL (4.0-10.0)
[2023-11-14 18:15] LABS: INR 1.17; PARTIAL THROMBOPLASTIN TIME 26.3 SECONDS (24.8-34.2); PROTHROMBIN TIME 14.6 SECONDS (12.5-14.5)
[2023-11-14 18:30] LABS: CK-MB VALUE MASS < 1.0 NG/ML (<3.6); ETHYL ALCOHOL (ETHANOL) 0.011 % (0.000-0.010); LIPASE 183 U/L (12-53)
[2023-11-14 18:32] LABS: ALKALINE PHOSPHATASE 87 U/L (46-116); ALT/SGPT 105 U/L (7.0-40); AST/SGOT 83 U/L (<34); BILIRUBIN,DIRECT 0.3 MG/DL (<0.4); BILIRUBIN,TOTAL 0.6 MG/DL (0.3-1.2); BLOOD UREA NITROGEN 8 MG/DL (9-23); CALCIUM LEVEL 7.8 MG/DL (8.5-10.1); CARBON DIOXIDE LEVEL 25 MMOL/L (20-31); CHLORIDE LEVEL 107 MMOL/L (98-107); CPK CREATINE PHOSPHOKINASE 46 U/L (46-171); CREATININE FOR GFR 0.52 MG/DL (0.70-1.30); GLOMERULAR FILTRATION RATE > 60.0 (>56); GLUCOSE, FASTING 177 MG/DL (60-100); MB/CK RELATIVE INDEX 2.17 (< OR =4); SODIUM LEVEL 141 MMOL/L (136-145); TOTAL PROTEIN 6.2 G/DL (5.7-8.2)
[2023-11-14 18:34] LABS: FREE T4 0.76 NG/DL (0.89-1.76)
[2023-11-14] MEDS: OXAZEPAM 15MG CAP PO ONE (18:43)
[2023-11-14] MEDS: PANTOPRAZOLE 40MG VIAL IV ONE (18:44)
[2023-11-14] MEDS ORDERED: LORazepam 2 MG TAB PO PRN (18:50)
[2023-11-14] MEDS ORDERED: THIAMINE 100 MG TAB PO SCH (19:00)
[2023-11-14] MEDS ORDERED: ISOVUE-370 76% 100ML VIAL As Ordered ONE (20:17)
[2023-11-14] MEDS ORDERED: GLUCOSE 4 GM CHEW PO PRN (23:25)
[2023-11-14] MEDS ORDERED: DEXTROSE 50% 50ML SYRINGE IV PRN (23:25)
[2023-11-14] MEDS ORDERED: GLUCAGON INJ 1MG VIAL SC PRN (23:25)
[2023-11-15] MEDS ORDERED: PANT40TA29 PO (00:13)
[2023-11-15] MEDS ORDERED: MED REC CURRENTLY UNOBTAINABLE XX SCH (00:20)
[2023-11-15] MEDS: methylPREDNISolone 125MG 2ML VIAL IV ONE (00:57)
[2023-11-15] MEDS: BUPRENORPHINE/NALOXONE 8-2MG SUBLINGUAL TABLET(SUBOXONE) SL STA (00:57)
[2023-11-15] MEDS: IPRATROPIUM 0.5MG/ALBUTEROL 2.5MG INH SOL UD 3ML (DUONEB) NEB SCH (02:11)
[2023-11-15] MEDS: MAG SULF 1GM/100ML (MAG RUN) 1 GM in IV 1 EA IV SCH (02:30)
[2023-11-15] MEDS: KCL 10MEQ/100ML SWI (KRUN) 10 MEQ in IV 1 EA IV SCH (05:05)
[2023-11-15] MEDS: POTASSIUM CHLORIDE 10MEQ SR TABLET PO ONE (05:06)
[2023-11-15] MEDS: LORazepam 2 MG TAB PO PRN (05:14)
[2023-11-15] MEDS: SUCRALFATE 1 GM TAB PO SCH (06:00)
[2023-11-15] MEDS: cloNIDine 0.1MG TABLET PO SCH (06:56)
[2023-11-15] MEDS: AZITHROMYCIN 250MG TABLET PO SCH (08:45)
[2023-11-15] MEDS: THIAMINE 100 MG TAB PO SCH (08:45)
[2023-11-15] MEDS: ENOXAPARIN 40MG/0.4ML SYRINGE (J1650 PER 10MG) SC SCH (08:45)
[2023-11-15] MEDS: MULTIVITAMINS/MINERALS THERAP 1 TAB PO SCH (08:46)
[2023-11-15] MEDS: ASPIRIN 81MG CHEW TABLET PO SCH (08:46)
[2023-11-15] MEDS: FOLIC ACID 1MG TAB PO SCH (08:46)
[2023-11-15] MEDS: PANTOPRAZOLE 40MG VIAL IV SCH (08:46)
[2023-11-15] MEDS: SERTRALINE 100 MG TAB PO SCH (08:46)
[2023-11-15] MEDS: PRIMIDONE 25MG PER 1/2 TABLET PO SCH (08:47)
[2023-11-15] MEDS ORDERED: MULTIVITAMINS/MINERALS THERAP 1 TAB PO SCH (09:00)
[2023-11-15] MEDS ORDERED: FOLIC ACID 1MG TAB PO SCH (09:00)
[2023-11-15 09:10] LABS: ALBUMIN 3.1 G/DL (3.2-5.2); ALKALINE PHOSPHATASE 99 U/L (46-116); ALT/SGPT 103 U/L (7.0-40); AST/SGOT 68 U/L (<34); BILIRUBIN,TOTAL 0.7 MG/DL (0.3-1.2); BLOOD UREA NITROGEN 12 MG/DL (9-23); CALCIUM LEVEL 8.6 MG/DL (8.5-10.1); CARBON DIOXIDE LEVEL 24 MMOL/L (20-31); CHLORIDE LEVEL 103 MMOL/L (98-107); CREATININE FOR GFR 0.54 MG/DL (0.70-1.30); GLOMERULAR FILTRATION RATE > 60.0 (>56); GLUCOSE, FASTING 515 MG/DL (60-100); POTASSIUM SERUM 3.9 MMOL/L (3.5-5.1); SODIUM LEVEL 136 MMOL/L (136-145); TOTAL PROTEIN 6.6 G/DL (5.7-8.2)
[2023-11-15] MEDS ORDERED: HOME MED LIST COMPLETE! XX SCH (09:45)
[2023-11-15] MEDS: POTASSIUM CHLORIDE 10MEQ SR TABLET PO SCH (10:09)
[2023-11-15] MEDS: INSULIN LISPRO (NovoLOG) PER UNIT SC SCH ×2 (10:19→20:20)
[2023-11-15] MEDS: INSULIN LISPRO (NovoLOG) PER UNIT SC STA (10:19)
[2023-11-15 11:00] LABS: HEMOGLOBIN A1c 6.7 % (4.0-6.0)
[2023-11-15 15:15] VITALS: TEMP 97.7; O2SAT 99
[2023-11-15 17:57] VITALS: BP 155/101
[2023-11-15] MEDS: DOXYCYCLINE HYCLATE 100MG TABLET PO SCH (20:19)
[2023-11-15 22:00] VITALS: BP 143/98; TEMP 97.7; O2SAT 97
[2023-11-16 03:13] VITALS: BP 141/86
[2023-11-16 04:00] VITALS: BP 144/79; TEMP 97.5; O2SAT 98
[2023-11-16 07:07] LABS: HEMOGLOBIN 12.5 g/dl (13.5-17.5); MEAN CORPUSCULAR HEMOGLOBIN 32.5 pg (27.0-33.0); MEAN CORPUSCULAR HGB CONC 33.8 g/dl (32.0-36.5); MEAN CORPUSCULAR VOLUME 96.1 fl (80.0-96.0); PLATELET COUNT, AUTOMATED 124 10^3/uL (150-450); RED BLOOD COUNT 3.85 10^6/uL (4.30-6.10); WHITE BLOOD COUNT 4.3 10^3/uL (4.0-10.0)
[2023-11-16 07:31] LABS: BLOOD UREA NITROGEN 11 MG/DL (9-23); CALCIUM LEVEL 8.4 MG/DL (8.5-10.1); CARBON DIOXIDE LEVEL 29 MMOL/L (20-31); CHLORIDE LEVEL 105 MMOL/L (98-107); CREATININE FOR GFR 0.63 MG/DL (0.70-1.30); GLOMERULAR FILTRATION RATE > 60.0 (>56); GLUCOSE, FASTING 203 MG/DL (60-100); POTASSIUM SERUM 4.8 MMOL/L (3.5-5.1); SODIUM LEVEL 140 MMOL/L (136-145)
[2023-11-16] MEDS: BUPRENORPHINE/NALOXONE 8-2MG SUBLINGUAL TABLET(SUBOXONE) SL SCH (11:53)
[2023-11-16 12:00] VITALS: BP 145/91; TEMP 97.9; O2SAT 98
[2023-11-16 12:23] LABS: CK-MB VALUE MASS < 1.0 NG/ML (<3.6)
[2023-11-16 12:26] LABS: CPK CREATINE PHOSPHOKINASE 25 U/L (46-171)
[2023-11-16 17:30] VITALS: BP 147/92
[2023-11-16 20:00] VITALS: BP_SYST 141; BP_SYST 148; BP_DIAS 88; TEMP 98.1; O2SAT 97
[2023-11-16] MEDS: BUPRENORPHINE/NALOXONE 2-0.5MG SUBLINGUAL TABLET(SUBOXONE) SL SCH (20:32)
[2023-11-17 04:00] VITALS: BP 148/88
[2023-11-17 05:45] VITALS: BP 141/87; TEMP 97.7; O2SAT 97
[2023-11-17 07:00] LABS: HEMATOCRIT 43.3 % (42.0-52.0); MEAN CORPUSCULAR HEMOGLOBIN 32.3 pg (27.0-33.0); MEAN CORPUSCULAR HGB CONC 33.9 g/dl (32.0-36.5); MEAN CORPUSCULAR VOLUME 95.2 fl (80.0-96.0); PLATELET COUNT, AUTOMATED 155 10^3/uL (150-450); RED BLOOD COUNT 4.55 10^6/uL (4.30-6.10); WHITE BLOOD COUNT 5.4 10^3/uL (4.0-10.0)
[2023-11-17 07:07] LABS: HEMOGLOBIN 14.7 g/dl (13.5-17.5)
[2023-11-17 07:21] LABS: BLOOD UREA NITROGEN 14 MG/DL (9-23); CALCIUM LEVEL 9.5 MG/DL (8.5-10.1); CARBON DIOXIDE LEVEL 30 MMOL/L (20-31); CHLORIDE LEVEL 100 MMOL/L (98-107); GLOMERULAR FILTRATION RATE > 60.0 (>56); GLUCOSE, FASTING 183 MG/DL (60-100); POTASSIUM SERUM 5.2 MMOL/L (3.5-5.1); SODIUM LEVEL 135 MMOL/L (136-145)
[2023-11-17 08:27] VITALS: BP 122/65
[2023-11-17 12:00] VITALS: BP 100/68; TEMP 97.7; O2SAT 99
[2023-11-17 20:31] VITALS: BP 118/75; TEMP 97.3; O2SAT 98
[2023-11-17] MEDS: ACETAMINOPHEN TAB 650MG DOSE (2X325MG) PO PRN (20:58)
[2023-11-18 05:16] VITALS: BP 117/75
[2023-11-18 05:20] VITALS: BP 117/75; TEMP 97.3; O2SAT 97
[2023-11-18 07:09] LABS: HEMATOCRIT 42.5 % (42.0-52.0); MEAN CORPUSCULAR HEMOGLOBIN 32.3 pg (27.0-33.0); MEAN CORPUSCULAR HGB CONC 32.9 g/dl (32.0-36.5); MEAN CORPUSCULAR VOLUME 97.9 fl (80.0-96.0); PLATELET COUNT, AUTOMATED 119 10^3/uL (150-450); RED BLOOD COUNT 4.34 10^6/uL (4.30-6.10); WHITE BLOOD COUNT 4.4 10^3/uL (4.0-10.0)
[2023-11-18 07:31] LABS: BLOOD UREA NITROGEN 19 MG/DL (9-23); CALCIUM LEVEL 9.4 MG/DL (8.5-10.1); CARBON DIOXIDE LEVEL 29 MMOL/L (20-31); CHLORIDE LEVEL 101 MMOL/L (98-107); CREATININE FOR GFR 0.64 MG/DL (0.70-1.30); GLOMERULAR FILTRATION RATE > 60.0 (>56); GLUCOSE, FASTING 160 MG/DL (60-100); POTASSIUM SERUM 5.4 MMOL/L (3.5-5.1); SODIUM LEVEL 135 MMOL/L (136-145)
[2023-11-18] MEDS ORDERED: POTASSIUM CHLORIDE 10MEQ SR TABLET PO SCH (09:00)
[2023-11-18 12:26] VITALS: BP 101/64; TEMP 97.9; O2SAT 96
[2023-11-18 14:00] VITALS: BP 124/66
[2023-11-18] MEDS: NYSTATIN 100,000 UNITS/GM TOPICAL PWD 15GM TOP SCH (14:28)
[2023-11-18 20:00] VITALS: BP 113/72; TEMP 97.7; O2SAT 94
[2023-11-18 21:32] VITALS: BP 116/71
[2023-11-19 04:00] VITALS: BP 100/61; TEMP 97.9; O2SAT 91
[2023-11-19 06:12] LABS: HEMATOCRIT 43.9 % (42.0-52.0); HEMOGLOBIN 14.6 g/dl (13.5-17.5); MEAN CORPUSCULAR HEMOGLOBIN 31.9 pg (27.0-33.0); MEAN CORPUSCULAR HGB CONC 33.3 g/dl (32.0-36.5); MEAN CORPUSCULAR VOLUME 95.9 fl (80.0-96.0); PLATELET COUNT, AUTOMATED 109 10^3/uL (150-450); RED BLOOD COUNT 4.58 10^6/uL (4.30-6.10); WHITE BLOOD COUNT 5.1 10^3/uL (4.0-10.0)
[2023-11-19 06:39] LABS: BLOOD UREA NITROGEN 20 MG/DL (9-23); CALCIUM LEVEL 9.1 MG/DL (8.5-10.1); CARBON DIOXIDE LEVEL 30 MMOL/L (20-31); CHLORIDE LEVEL 101 MMOL/L (98-107); CREATININE FOR GFR 0.64 MG/DL (0.70-1.30); GLOMERULAR FILTRATION RATE > 60.0 (>56); GLUCOSE, FASTING 228 MG/DL (60-100); POTASSIUM SERUM 4.9 MMOL/L (3.5-5.1); SODIUM LEVEL 136 MMOL/L (136-145)
[2023-11-19] MEDS: MAGNESIUM OXIDE 400MG TAB (MAG-OX) PO SCH (08:50)
[2023-11-19 12:00] VITALS: BP 114/70; TEMP 97.9; O2SAT 97
[2023-11-19] MEDS ORDERED: ALBUTEROL SULFATE 2.5MG/0.5ML INH NEB SOLN NEB PRN (18:10)
[2023-11-19 20:23] VITALS: BP 117/73; TEMP 97.7; O2SAT 97
[2023-11-19] MEDS: MECLIZINE 25 MG TABLET PO PRN (20:43)
[2023-11-19] MEDS: RAMELTEON 8 MG TAB (ROZEREM) PO ONE (20:44)
[2023-11-20 04:27] VITALS: BP 108/68; TEMP 97.3; O2SAT 93
[2023-11-20 06:29] LABS: HEMOGLOBIN 14.4 g/dl (13.5-17.5); MEAN CORPUSCULAR HEMOGLOBIN 31.8 pg (27.0-33.0); MEAN CORPUSCULAR HGB CONC 33.5 g/dl (32.0-36.5); MEAN CORPUSCULAR VOLUME 94.9 fl (80.0-96.0); PLATELET COUNT, AUTOMATED 120 10^3/uL (150-450); RED BLOOD COUNT 4.53 10^6/uL (4.30-6.10); WHITE BLOOD COUNT 5.7 10^3/uL (4.0-10.0)
[2023-11-20 07:32] LABS: BLOOD UREA NITROGEN 21 MG/DL (9-23); CALCIUM LEVEL 8.9 MG/DL (8.5-10.1); CARBON DIOXIDE LEVEL 30 MMOL/L (20-31); CHLORIDE LEVEL 100 MMOL/L (98-107); CREATININE FOR GFR 0.63 MG/DL (0.70-1.30); GLOMERULAR FILTRATION RATE > 60.0 (>56); GLUCOSE, FASTING 126 MG/DL (60-100); POTASSIUM SERUM 4.6 MMOL/L (3.5-5.1); SODIUM LEVEL 136 MMOL/L (136-145)
[2023-11-20 08:44] VITALS: BP 119/72
[2023-11-20] MEDS ORDERED: MECL-86 PO (11:10)
[2023-11-20] MEDS ORDERED: SUCR1TA PO (11:13)
[2023-11-20 12:00] VITALS: BP 105/62; TEMP 98.2; O2SAT 95
== END 2023-11-20 14:45 | disposition home or self-care (01) | DRG 202 ==
LOC: M ED 17:06 → M ED INP 22:39 → M MSPAV 11-15 15:18 → OBSVTOIN 11-18 15:27
PROVIDERS: ADMIT Internal Medicine; ATTEND Internal Medicine
DX: J20.9 Acute bronchitis, unspecified (principal); J44.1 Chronic obstructive pulmonary disease with (acute) exacerbation; J44.0 Chronic obstructive pulmonary disease with (acute) lower respiratory infection; I10 Essential (primary) hypertension; E11.9 Type 2 diabetes mellitus without complications; E78.5 Hyperlipidemia, unspecified; K76.0 Fatty (change of) liver, not elsewhere classified; R07.89 Other chest pain; I16.0 Hypertensive urgency; F10.20 Alcohol dependence, uncomplicated; K29.20 Alcoholic gastritis without bleeding; F32.A Depression, unspecified; E87.5 Hyperkalemia; E83.42 Hypomagnesemia; Z79.82 Long term (current) use of aspirin; Z79.84 Long term (current) use of oral hypoglycemic drugs; Z79.891 Long term (current) use of opiate analgesic; Z79.899 Other long term (current) drug therapy; Z87.891 Personal history of nicotine dependence; R26.89 Other abnormalities of gait and mobility